=== PATIENT | female | born 1980 | race Caucasian/White ===

== ENCOUNTER 2021-12-15 18:04 | Inpatient (IN) | payer OTHER, SELFPAY ==
[2021-12-15] VITALS (36 sets, daily range): BP systolic 48–123; BP diastolic 18–87; PULSE 106–145; RESP 9–32; TEMP 37.3–37.9; O2SAT 87–98
--- NOTE | ~2021-12-15 | CT_ITS ---
EXAMINATION: CT abdomen pelvis wo con DATE: 12/15/2021 20:52 INDICATION: Flank pain, fever TECHNIQUE: Computed tomography (CT) of the abdomen and pelvis was performed without intravenous contr ast. Automated exposure control and iterative reconstruction technique were employed. Exam dose: 180 6.29 mGy-cm total exam DLP. COMPARISON: 12/15/2021 portable AP chest FINDINGS: There are patchy bilateral focal consolidating infiltrates and/or pulmonary mass lesions. P ulmonary metastatic lesions are not excluded. Right atrial central lines. There is trace pericardial effusion. Heart size is within normal range. Gastrostomy tube in stomach, distal tip in duodenum. Status post cholecystectomy. The liver, spleen, pancreas, adrenal glands are unremarkable. The gallbl adder is absent. No bile duct or pancreatic duct dilatation. Normal caliber of the abdominal aorta. There is severe calcification of the celiac, hepatic, splenic, superior mesenteric and particularly extensive calcifications of the renal arteries extending into t he kidneys. There is prominent calcification of the inferior mesenteric artery. No renal mass lesion or ureteral calculus or hydroureteronephrosis is evident. There is a Ballesteros warren ter within the evacuated urinary bladder. Retroverted uterus. Adnexal areas are unremarkable. The appendix is not identified. No bowel obstruction, bowel wall thickening, pneumatosis or intraperi toneal free air is evident. There is diffuse osteopenia. There is mild compression fracture deformities of T12, L1, L2 and L3. IMPRESSION: Patchy bilateral lower lung focal consolidating infiltrates and/or pulmonary mass lesion s. Pulmonary metastatic lesions are not excluded. Trace pericardial effusion a gastrostomy tube, distal tip in duodenum Status post cholecystectomy and probable appendectomy Severe calcification of celiac, hepatic, splenic, superior mesenteric, inferior mesenteric arteries a nd typically severe calcification throughout the renal arteries Retroverted uterus Mild compression fracture deformities of T12-L3 Reviewed, dictated and finalized at [facility]. Reviewed, dictated and finalized at location [facility]. ING ENFORCEMENT SPECIALIST IMPRESSION: Patchy bilateral lower lung focal consolidating infiltrates and/or pulmonary mass lesions. Pulmonary metastatic lesions are not excluded. Trace pericardial effusion a gastrostomy tube, distal tip in duodenum Status post cholecystectomy and probable appendectomy Severe calcification of celiac, hepatic, splenic, superior mesenteric, inferior mesenteric arteries and typically severe calcification throughout the renal ar teries Retroverted uterus Mild compression fracture deformities of T12-L3
--- NOTE | ~2021-12-15 | CT_ITS ---
EXAMINATION:CT chest high resolution wo ok DATE: 12/16/2021 04:06 INDICATION: Pneumonia. TECHNIQUE: Computed tomography (CT) of the chest was performed without intravenous contrast. Automate d exposure control and iterative reconstruction technique were employed. The dose-length product (DLP ) was 903.46 mGy-cm. COMPARISON: CT abdomen and pelvis 12/15/2021 FINDINGS: The lung volumes are small. There is mild relative elevation of right hemidiaphragm. There are patchy airspace opacities and scattered nodules involving all lobes. Some of the nodules are cavi tary suggesting septic emboli. There are trace pleural effusions. The heart size is normal. No perica rdial effusion. A right internal jugular central venous catheter is seen with tip in the right atrium . A second right internal jugular central venous catheter is seen with tip in the right atrium. There is a gastrojejunostomy tube in expected position. There is peripheral low attenuation in the spleen, likely a subacute or chronic hematoma or subacute infarct. There is mild chronic height loss of mult iple lumbar vertebral bodies. IMPRESSION: 1. Diffuse lung disease, likely pneumonia and septic emboli. 2. Peripheral low attenuation in the spleen, likely a subacute or chronic hematoma or subacute infarc t. Reviewed, dictated and finalized at location [facility]. POINTER IMPRESSION: 1. Diffuse lung disease, likely pneumonia and septic emboli. 2. Peripheral low attenuation in the spleen, likely a subacute or chronic hemat eugene or subacute infarct.
--- NOTE | ~2021-12-15 | XR_ITS ---
XR chest 1V portable DATE: 12/15/2021 19:04 INDICATION: Cough, fever, midsternal chest pain for 2 days. TECHNIQUE: Portable supine AP chest on 12/15/2021 at 1857 hours COMPARISON: None FINDINGS: There is pulmonary vascular prominence and patchy bilateral pulmonary infiltrates scattered throughout both lungs. No pleural effusion. No pneumothorax. Moderate elevation of right diaphragm. Right-sided Port-A-Cath tip overlies upper right atrium. Right internal jugular central venous cathet er tip overlies right atrium. Diffuse osteopenia. IMPRESSION: Pulmonary vascular prominence Patchy bilateral pulmonary infiltrates scattered throughout both lungs; differential diagnosis includ es pulmonary edema and/or pneumonia Reviewed, dictated and finalized at location A. ACT CENTER ASSOCIATE IMPRESSION: Pulmonary vascular prominence Patchy bilateral pulmonary infiltrates scattered throughout both lungs; differe ntial diagnosis includes pulmonary edema and/or pneumonia
--- NOTE | ~2021-12-15 | XR_ITS ---
EXAMINATION: XR chest 1V portable DATE: 12/22/2021 08:31 INDICATION: Chest pain. TECHNIQUE: A single frontal view of the chest was obtained. COMPARISON: Chest single view 12/15/2021, chest CT 12/16/2021 FINDINGS: Again seen is mild elevation of right hemidiaphragm. There are nodules and patchy airspace opacities throughout the lungs bilaterally. No pleural effusion or pneumothorax. The heart size is no rmal. IMPRESSION: 1. Worsened diffuse lung disease, consistent with pneumonia and septic emboli. Reviewed, dictated and finalized at location [facility]. AGE DIVER
[2021-12-15 18:48] LABS: Hematocrit 33.4 % (37.0-47.0); Hemoglobin 10.8 g/dL (12.0-15.0); Mean Corpuscular HGB Conc 32.3 g/dl (32-36); Mean Corpuscular Hemoglobin 32.6 pg (26-34); Mean Corpuscular Volume 100.9 fl (80-100); Platelet Count Result 155 k/mm3 (150-375); Red Blood Count 3.31 M/mm3 (4.2-5.4); Red Cell Distribution Width 15.3 % (11.5-14.5); White Blood Count 35.5 K/mm3 (4.5-10.0)
[2021-12-15 19:00] LABS: INR 1.1; Prothrombin Time 13.9 Seconds (11.1-14.7)
[2021-12-15 19:01] LABS: Partial Thromboplastin Time 38.4 SECONDS (22.3-36.8)
[2021-12-15] MEDS: SODIUM CHLORIDE 0.9% IV 1,000 ML 999 ML IV CONT (19:05)
[2021-12-15 19:09] LABS: Lactic Acid Reflex 1.7 mmol/L (0.7-2.1)
[2021-12-15 19:27] LABS: Band Neutrophils Percent 15 % (0-6); Lymphocytes Absolute Manual 0.71 K/mm3 (1.1-4.5); Monocytes Absolute Manual 0.35 K/mm3 (0.1-0.90); Monocytes Percent Manual 1 % (3-9); Neutrophils Absolute Manual 34.43 K/mm3 (1.7-7.2); Neutrophils Percent Manual 82 % (46-73); Total Cells Counted 100
[2021-12-15 19:28] LABS: Anisocytosis 2+ (NORMAL); Platelet Estimate Adequate (Adequate)
[2021-12-15 19:32] LABS: Alanine Aminotransferase 14 U/L (4-35); Albumin Level 3.8 g/dL (3.5-5.1); Alkaline Phosphatase 74 U/L (38-126); Anion Gap 18 mmol/L (8-16); Aspartate Amino Transferase 17 U/L (14-36); Bilirubin,Total 0.6 mg/dL (0.2-1.3); Blood Urea Nitrogen 46 mg/dL (7-17); CRP > 45.0 mg/dL (<1.0); Calcium 9.7 mg/dL (8.4-10.2); Carbon Dioxide 29 mmol/L (22-30); Chloride 89 mmol/L (98-107); Estimated CRCL calculation 12 ml/min; Estimated Glomerular Filt Rate 6; Glucose 215 mg/dL (65-110); Sodium 136 mmol/L (137-145)
--- NOTE | 2021-12-15 19:35 | ECG_ITS ---
Measurements Intervals [place] Rate: 109 P: 30 TX: 143 QRS: 22 QRSD: 89 T: 74 QT: 312 QTc: 421 Interpretive Statements SINUS TACHYCARDIA POSSIBLE LEFT ATRIAL ENLARGEMENT DELAYED PRECORDIAL R/S TRANSITION LOW QRS VOLTAGE IN LIMB LEADS BORDERLINE T WAVE ABNORMALITY- HIGH LATERAL LEADS BASELINE ARTIFACT- I, II, AVR, V5-V6 ABNORMAL ECG Electronically Signed On 12-15-2021 20:27:28 [employer]IN[employer] by Tyree Little D.O.
[2021-12-15] MEDS: CALCIUM GLUCONATE 1,000 MG/10 ML VIAL 1000 MG IV PUSH (19:56)
[2021-12-15] MEDS: fentaNYL CITRATE INJ (*CRX) 100 MCG/2 ML VIAL 50 MCG IV PUSH (20:13)
--- NOTE | 2021-12-15 20:15 | PC.NURSE ---
no urine output in allred catheter at this time
[2021-12-15] MEDS: ONDANSETRON INJ 4 MG/2 ML VIAL IV PUSH (20:36)
--- NOTE | 2021-12-15 20:37 | PC.NURSE ---
Not enough urine in allred for sample collection.
--- NOTE | 2021-12-15 20:37 | PC.NURSE ---
Pt to cat scan via stretcher at this time.
[2021-12-15 21:11] LABS: SARS-CoV-2 RNA PCR Negative
--- NOTE | 2021-12-15 22:24 | PC.NURSE ---
Spoke to Justo at [facility] and gave nurse to nurse report regarding pt status and POC.
[2021-12-15 22:34] LABS: Add Urine Microscopic? YES; Appearance Urine Cloudy (Clear); Bacteria Urine Trace /hpf; Bilirubin Urine Negative (Negative); Blood Urine Negative (Negative); Color Urine Yellow (Yellow); Glucose Urine UA Negative (Negative); Ketones Urine Negative (Negative); Leukocyte Esterase Ur 2+ LEU/UL (Negative); Mucus Urine Rare /lpf; Nitrate Urine Negative (Negative); Protein Urine 3+ mg/dL (Negative); Specific Grav Ur 1.015 (1.001-1.035); Squamous Epithelial Cell Urine Many /hpf (Few); Urobilinogen Urine Negative mg/dL (<2.0); WBC Clumps Urine Present /HPF; WBC Urine >75 /hpf
[2021-12-15] MEDS: DEXTROSE 50% 25 GM/50 ML SYRINGE IV PUSH (22:50)
[2021-12-15] MEDS: INSULIN HUMAN REGULAR (*BKC) 100 UNITS/ML 10 UNITS IV PUSH (22:51)
[2021-12-15] MEDS: SODIUM CHLORIDE 0.9% IV 1,000 ML 999 ML (22:51)
[2021-12-15] MEDS: SODIUM POLYSTYRENE SULFONONATE 15 GM/60 ML BTL PO (22:51)
--- NOTE | 2021-12-15 23:11 | ED.FEVER ---
HPI - Fever General Chief Complaint: Fever Stated Complaint: CP/COUGH/FEVER Time Seen by Provider: 12/15/21 18:50 Source: patient Mode of arrival: EMS Limitations: no limitations History of Present Illness HPI Narrative: 41-year-old with a history of diabetes, end-stage renal disease on hemodialysis was sent from [facility] with complaints of fever, cough and was also found to have low O2 saturations of 86%. Patient states that she has dry nonproductive cough on and off for 2 days. As per the EMS patient well this evening was given Tylenol prior to coming to the ER. Patient states that she has been sick for past 2 days was unable to go to dialysis because of her intense nausea and vomiting. She denies any abdominal pain no diarrhea. She states that she gets pain in the right side of her chest whenever she coughs or takes a deep breath. Her behavioral health care coordinator is Dr. Guzman. MD elicited complaint: fever Pertinent past history: diabetes Onset (ago): day(s) (2) Exacerbating factors: nothing Relieving factors: nothing Associated symptoms: nausea and vomiting Treatments prior to arrival fever: acetaminophen Related Data Home Medications Medication Instructions Recorded Confirmed ascorbic acid (vitamin C) 250 mg PO WEEKLY 12/15/21 12/15/21 ergocalciferol (vitamin D2) 1,250 mcg PO WEEKLY 12/15/21 12/15/21 fentanyl 1 patch TRANSDERMAL Q72H 12/15/21 12/15/21 heparin (porcine) unit Q8-12H 12/15/21 hydrocodone-acetaminophen [[place]] 1 tablet PO HS 12/15/21 12/15/21 hydroxyzine HCl 10 mg PO QID PRN 12/15/21 12/15/21 insulin lispro [Humalog KwikPen 1 sliding scale dose SUBCUT 12/15/21 12/15/21 Insulin] USEASDIRECTD levothyroxine 25 mcg PO DAILY 12/15/21 12/15/21 loperamide 2 mg PO PRN PRN 12/15/21 12/15/21 metoclopramide HCl 5 mg PO Q6H 12/15/21 12/15/21 sevelamer carbonate 2.4 g PO TID 12/15/21 12/15/21 Allergies Allergy/AdvReac Type Severity Reaction Status Date / Time vancomycin Allergy Rash Verified 12/15/21 18:27 Review of Systems Review of Systems: All systems reviewed & are unremarkable except as noted in HPI and below Constitutional: Constitutional: Reports no additional constitutional complaints Eyes: Eyes: Reports no additional eye complaints ENT: Reports system reviewed and no additional complaints, except as documented Cardiovascular: Cardiovascular: Reports chest pain (on the right side) Respiratory: Respiratory: Reports no additional respiratory complaints Gastrointestinal: Gastrointestinal: Reports nausea and Reports vomiting Musculoskeletal: Musculoskeletal: Reports no additional musculoskeletal complaints Neurologic: Reports system reviewed and no additional complaints, except as documented Endocrine: Endocrine: Reports no additional endocrine complaints Exam Narrative: GENERAL: Well-appearing, Obsese , and in no acute distress. HEAD: Normocephalic, atraumatic. EYES: blind ENT: Nares clear, no rhinorrhea or epistaxis. Mucous membranes moist. NECK: Supple. CHEST: Clear to auscultation. No respiratory distress. has dialysis catheter in the right side of her chest along with the central line. HEART: tachycardic. ABDOMEN: Soft, nontender, nondistended, normal active bowel sounds. EXTREMITIES:right leg has atrophy , left is BKA SKIN: Warm, dry, no rash. NEURO: No focal deficits. Alert and oriented x3. PSYCH: Normal mood and affect. Course Course Emergency Course: Patient continues to have intermittent chest pain more on the right side. But she is not tachypneic or short of breath. I did inform her about her lab work, CT and x-ray findings. I discussed in length with Dr. Grullon , agreed with the plan of dextrose, insulin, calcium and Kayexalate. Agreed with Zosyn. I discussed with Dr. Ashby agreed to admit the patient. However her blood pressure is very variable presently it is 130/107 at drops down to 86/64 she has a pretty labile blood pressure not quite sure whether she needs pressors at t
[2021-12-16] VITALS (46 sets, daily range): BP systolic 69–173; BP diastolic 25–98; PULSE 56–145; RESP 18–37; TEMP 36.8–39.4; O2SAT 92–100; BMI 41.3
[2021-12-16] MEDS: ONDANSETRON INJ 4 MG/2 ML VIAL IV PUSH (00:45)
--- NOTE | 2021-12-16 00:57 | PC.NURSE ---
BS 167
[2021-12-16 01:00] LABS: Glucose Point of Care 167 mg/dl (65-105)
--- NOTE | 2021-12-16 02:20 | PC.NURSE ---
Paging hospitalist due to oral temp of 103, pt has PRN Tylenol PO ordered and pt is unable to swallow pills.
--- NOTE | 2021-12-16 02:49 | PM.IMHP ---
H&P: HPI History of Present Illness Date/Time: 12/16/21 02:49 Chief Complaint: fever Narrative: 41-year-old female with PMH of Diabetes, ESRD on HD sent form [facility] presents with not feeling well, fever, shortness of breath, cough since past few days. she is noted have low oxygen saturation at 86% vomiting. She has been to [facility] and [facility] on and off last year since April 2021. she is ESRD on HD MWF. she missed her HD yesterday as she was not feeling well. shehas right upper chest central line and right chest wall diaalysis cathter in place. she is s/p left AKA and has dx of calciphylaixs. hx of MRSA infection. she has recurrent episodes of vomiting which she rpeorts is diagnosed to be due to gastroparesis. she has G tube placed for her meds as she is not able to take anything by mouth. she also had hx of abdoinal wall wound needing debridement in the past and still has abdominal open wound that she gets dressing changes regularly. she has also been to [facility] in the past off and on from the hospital. she is allergic to vancomycin causing rash. she has been treated with daptomycin in the apst. In the ED she is noted to have bordeline bp, high K and was given treatment for hyperkalemia. she was also taachycaradia ekg showing sinus tachycardia. she is noted to have leukocytoisi f o35 k. she is admtited for further evaluation and management. allred placed in the ED her regular gear tester is Dr. Guzman. she is scheduled to have dialysis this am after consultation with Dr. Grullon from the ED. Review of Systems Review of Systems: - CONSTITUTIONAL: Denies weight loss, reports fever and chills. - HEENT: Denies changes in vision and hearing - RESPIRATORY: reports SOB and cough. - CV: Denies palpitations and CP. - GI: Denies abdominal pain, nausea, vomiting and diarrhea. - : Denies dysuria and urinary frequency. - MSK: Denies myalgia and joint pain. - SKIN: Denies rash and pruritus. - NEUROLOGICAL: Denies headache and syncope. - PSYCHIATRIC: Denies recent changes in mood. Denies anxiety and depression. All systems reviewed & are unremarkable except as noted in HPI and below Constitutional: Constitutional: Reports fatigue and Reports weakness Neurologic: Reports weakness Endocrine: Endocrine: Reports fatigue Meds Home Medications and Allergies Home Medications Medication Instructions Recorded Confirmed Type ascorbic acid (vitamin C) 250 mg PO WEEKLY 12/15/21 12/15/21 History ergocalciferol (vitamin D2) 1,250 mcg PO WEEKLY 12/15/21 12/15/21 History fentanyl 1 patch TRANSDERMAL Q72H 12/15/21 12/15/21 History heparin (porcine) unit Q8-12H 12/15/21 History hydrocodone-acetaminophen [[place]] 1 tablet PO HS 12/15/21 12/15/21 History hydroxyzine HCl 10 mg PO QID PRN 12/15/21 12/15/21 History insulin lispro [Humalog KwikPen 1 sliding scale dose SUBCUT 12/15/21 12/15/21 History Insulin] USEASDIRECTD levothyroxine 25 mcg PO DAILY 12/15/21 12/15/21 History loperamide 2 mg PO PRN PRN 12/15/21 12/15/21 History metoclopramide HCl 5 mg PO Q6H 12/15/21 12/15/21 History sevelamer carbonate 2.4 g PO TID 12/15/21 12/15/21 History Allergies Allergy/AdvReac Type Severity Reaction Status Date / Time vancomycin Allergy Rash Verified 12/15/21 18:27 Vital Signs Vital Signs - 24 hr 12/15/21 18:08 12/15/21 18:38 12/15/21 18:42 Temperature 100.2 F H Pulse Rate 123 H 132 H 132 H Respiratory Rate 24 H 24 H Blood Pressure 94/29 L Pulse Oximetry 87 L 94 94 12/15/21 18:51 12/15/21 18:58 12/15/21 19:13 Temperature 99.8 F H Pulse Rate 120 H 117 H 111 H Respiratory Rate 19 27 H 25 H Blood Pressure 70/18 L 96/60 L Pulse Oximetry 94 12/15/21 19:44 12/15/21 19:45 12/15/21 19:46 Temperature Pulse Rate 109 H 108 H 109 H Respiratory Rate 18 18 19 Blood Pressure 107/41 L Pulse Oximetry 98 97 97 12/15/21 20:00 12/15/21 20:01 12/15/21 20:14 Temperature Pulse Rate 109 H 109 H 106 H
--- NOTE | 2021-12-16 04:02 | PC.NURSE ---
Pt to CT scan at this time.
--- NOTE | 2021-12-16 04:08 | PC.NURSE ---
Hospitalist made aware of pharmacy requests for medication verification and missing information. Per Pharmacist - hospitalist needs to add in/edit information missing in. Hospitalist made aware, asks if medications were entered. Medication list was entered by Christina LESTER prior to this RN taking report. Copy sent to pharmacy - states will call if need a critical medication, otherwise will wait for hospitalist to enter.
--- NOTE | 2021-12-16 04:21 | PC.NURSE ---
This RN attempted to call [facility] for clarification on medication list - such as when Fentanyl Patch was last placed (ordered q 3 days), no answer at this time.
--- NOTE | 2021-12-16 04:21 | PC.NURSE ---
Called pt's sister Heather at [phone] and gave update on pt status and POC. She is normally computer operations manager for pt and requesting updates to be called to her at this number. Pt currently at [facility] for wound care to stomach.
--- NOTE | 2021-12-16 05:00 | PC.NURSE ---
Pt has Fentanyl Patch to LEFT shoulder, unable to see date clearly (ink rubbed off), unknown date of placement. Called James for clarification, no response at this time. Hospitalist Dr Escamilla made aware, discussed vitals - temp of 102.
[2021-12-16 06:15] LABS: Hematocrit 31.4 % (37.0-47.0); Hemoglobin 9.8 g/dL (12.0-15.0); Mean Corpuscular HGB Conc 31.2 g/dl (32-36); Mean Corpuscular Hemoglobin 31.9 pg (26-34); Mean Corpuscular Volume 102.3 fl (80-100); Mean Platelet Volume 10.3 fl (7.4-10.4); Platelet Count Result 133 k/mm3 (150-375); Red Blood Count 3.07 M/mm3 (4.2-5.4); Red Cell Distribution Width 15.4 % (11.5-14.5)
[2021-12-16] MEDS: METOCLOPRAMIDE HCL 10 MG/10 ML SOLN UDC 5 MG PO ×2 (06:22→17:55)
[2021-12-16] MEDS: hydrOXYzine HCL 10 MG TABLET PO (06:22)
[2021-12-16] MEDS: DAPTOmycin 500 MG in SODIUM CHLORIDE 0.9% IV 50 ML 100 MG IVPB (06:23)
[2021-12-16] MEDS: LEVOTHYROXINE SODIUM 25 MCG TABLET PO (06:30)
[2021-12-16 06:43] LABS: Anion Gap 19 mmol/L (8-16); Blood Urea Nitrogen 49 mg/dL (7-17); Calcium 9.3 mg/dL (8.4-10.2); Carbon Dioxide 23 mmol/L (22-30); Chloride 92 mmol/L (98-107); Estimated CRCL calculation 11 ml/min; Estimated Glomerular Filt Rate 6; Glucose 177 mg/dL (65-110); Potassium 6.1 mmol/L (3.4-5.0); Sodium 134 mmol/L (137-145)
[2021-12-16 06:46] LABS: Band Neutrophils Percent 6 % (0-6); Lymphocytes Absolute Manual 0.66 K/mm3 (1.1-4.5); Metamyelocytes Percent 2 %; Monocytes Absolute Manual 0.99 K/mm3 (0.1-0.90); Monocytes Percent Manual 3 % (3-9); Neutrophils Absolute Manual 30.69 K/mm3 (1.7-7.2); Neutrophils Percent Manual 87 % (46-73); Total Cells Counted 100
[2021-12-16] MEDS: PHARMACIST COMMUNICATION ORDER 1 EACH XX (07:03)
[2021-12-16 08:08] LABS: Glucose Point of Care 183 mg/dl (65-105)
[2021-12-16] MEDS: fentaNYL (*CRX) 25 MCG PATCH TRANSDERM (08:16)
[2021-12-16] MEDS: CALCIUM GLUCONATE 1,000 MG/10 ML VIAL 1000 MG IV PUSH (09:00)
[2021-12-16] MEDS: SODIUM POLYSTYRENE SULFONONATE 15 GM/60 ML BTL 30 GM FEED TUBE (09:02)
[2021-12-16 09:38] LABS: Hemoglobin A1C 5.2 % (<5.7)
[2021-12-16] MEDS: COLLAGENASE OINT 30 GM TUBE 1 APPLIC TOPICAL (11:00)
[2021-12-16] MEDS: TOLNAFTATE 1% POWDER 45 GM BTL 1 APPLIC TOPICAL (11:00)
--- NOTE | 2021-12-16 12:00 | PC.NURSE ---
pt to dialysis. stable to leave.
[2021-12-16 14:21] LABS: Hepatitis B Surface Antigen Negative (Negative)
[2021-12-16 14:39] LABS: Hepatitis B Surface Anti Res Negative
--- NOTE | 2021-12-16 14:51 | PC.NURSE ---
Report received from TAYLER Perea @ 1330. Pt currently in dialysis and will be admitted to IMu Rm 202 after treatment is completed
--- NOTE | 2021-12-16 14:53 | ADMGEN ---
This patient, Gayle Dixon, was admitted to IMU Room 202-01. Patient/family oriented to hospital policies and general routines including ID bracelet, bed and alarms, visiting hours, pain management, procedures, bathroom and other care routines, personal items, smoking policy, room service/diet, and visiting hours. Information on how to activate the Rapid Response Team has been discussed. Patient/Family are encouraged to report perceived risks to care and to ask questions if they do not understand what they are told or what they should do.
--- NOTE | 2021-12-16 15:06 | P.CONNP_ITS ---
Assessment and Plan Assessment and plan (1) End stage renal disease: Code(s): N18.6 - End stage renal disease Status: Chronic Assessment and Plan: * initiated on APPOINTMENT SETTER/dialysis in January 2021 * thought to be secondary to diabetes * normal schedule is M// at [facility] * HD today due to #2 * hhhhhhhhhhg (2) Hyperkalemia: Code(s): E87.5 - Hyperkalemia Status: Acute Assessment and Plan: * as noted by admission labs * s/p medical management yesterday evening * however, K+ still elevated this AM * dialysis should correct this issue * follow repeat K+ levels (3) Sepsis: Qualifiers: Sepsis acute organ dysfunction status: without acute organ dysfunction Sepsis type: sepsis due to unspecified organism Qualified Code(s): A41.9 - Sepsis, unspecified organism Code(s): A41.9 - Sepsis, unspecified organism Status: Acute Assessment and Plan: * based on presentation with tachycardia, fever, leukocytosis and hypotension (although has a history of low BP) * potential sources include HD catheter AND central line, pneumonia, calciphylaxis lesions/wounds * follow culture data * on broad spectrum antibiotic therapy (4) Pneumonia: Qualifiers: Laterality: bilateral Lung location: unspecified part of lung Pneumonia type: due to unspecified organism Qualified Code(s): J18.9 - Pneumonia, unspecified organism Code(s): J18.9 - Pneumonia, unspecified organism Status: Acute Assessment and Plan: * CXR suggestive * CT of chest with patchy airspace opacities and scattered nodules involving all lobes. Some of the nodules are cavitary suggesting septic emboli. * follow cultures * on antibiotics (5) Calciphylaxis: Code(s): E83.59 - Other disorders of calcium metabolism Status: Acute Assessment and Plan: * mainly localized to abdomen/abdominal pannus * was getting sodium thiosulfate * developed severe anion gap metabolic acidosis from use * this apparently resolved * local wound care * potential source of sepsis(?) (6) Hypotension: Code(s): I95.9 - Hypotension, unspecified Status: Chronic Assessment and Plan: * chronic issue at baseline * surprisingly, not on midodrine * secondary to advanced vascular disease(?) * follow trend of hemodynamics (7) Anemia: Code(s): D64.9 - Anemia, unspecified Status: Chronic Assessment and Plan: * related to ESRD and acute illness * Epogen with HD * follow H/H (8) Type 2 diabetes mellitus: Code(s): E11.9 - Type 2 diabetes mellitus without complications Status: Chronic Assessment and Plan: * follow accuchecks * glycemic control Will continue to follow. History of Present Illness Reason for Consult Consult date: 12/16/21 Chief Complaint Chief complaint: sepsis, pneumonia, hyperkalemia History of Present Illness Narrative: The patient is a unfortunate 41-year-old female with an extensive past medical history is outlined below who presented to [facility] Emergency room from her nursing facility due to not feeling well in association with fever, shortness of breath, and cough. The above symptoms apparently have been present for the past few days and was noted on the day of admission that she had evidence of hypoxia as well. Due to her complex medical history and recurrent hospitalizations in the last year for sepsis/infection, her nursing facility since her to t
--- NOTE | 2021-12-16 15:06 | PM.CNNEP ---
Assessment and Plan Assessment and plan (1) End stage renal disease: Code(s): N18.6 - End stage renal disease Status: Chronic Assessment and Plan: initiated on MANAGER CHINESE/dialysis in January 2021 thought to be secondary to diabetes normal schedule is M//F at [facility] HD today due to #2 hhhhhhhhhhg (2) Hyperkalemia: Code(s): E87.5 - Hyperkalemia Status: Acute Assessment and Plan: as noted by admission labs s/p medical management yesterday evening however, K+ still elevated this AM dialysis should correct this issue follow repeat K+ levels (3) Sepsis: Qualifiers: Sepsis acute organ dysfunction status: without acute organ dysfunction Sepsis type: sepsis due to unspecified organism Qualified Code(s): A41.9 - Sepsis, unspecified organism Code(s): A41.9 - Sepsis, unspecified organism Status: Acute Assessment and Plan: based on presentation with tachycardia, fever, leukocytosis and hypotension (although has a history of low BP) potential sources include HD catheter AND central line, pneumonia, calciphylaxis lesions/wounds follow culture data on broad spectrum antibiotic therapy (4) Pneumonia: Qualifiers: Laterality: bilateral Lung location: unspecified part of lung Pneumonia type: due to unspecified organism Qualified Code(s): J18.9 - Pneumonia, unspecified organism Code(s): J18.9 - Pneumonia, unspecified organism Status: Acute Assessment and Plan: CXR suggestive CT of chest with patchy airspace opacities and scattered nodules involving all lobes. Some of the nodules are cavitary suggesting septic emboli. follow cultures on antibiotics (5) Calciphylaxis: Code(s): E83.59 - Other disorders of calcium metabolism Status: Acute Assessment and Plan: mainly localized to abdomen/abdominal pannus was getting sodium thiosulfate developed severe anion gap metabolic acidosis from use this apparently resolved local wound care potential source of sepsis(?) (6) Hypotension: Code(s): I95.9 - Hypotension, unspecified Status: Chronic Assessment and Plan: chronic issue at baseline surprisingly, not on midodrine secondary to advanced vascular disease(?) follow trend of hemodynamics (7) Anemia: Code(s): D64.9 - Anemia, unspecified Status: Chronic Assessment and Plan: related to ESRD and acute illness Epogen with HD follow H/H (8) Type 2 diabetes mellitus: Code(s): E11.9 - Type 2 diabetes mellitus without complications Status: Chronic Assessment and Plan: follow accuchecks glycemic control Will continue to follow. History of Present Illness Reason for Consult Consult date: 12/16/21 Chief Complaint Chief complaint: sepsis, pneumonia, hyperkalemia History of Present Illness Narrative: The patient is a unfortunate 41-year-old female with an extensive past medical history is outlined below who presented to [facility] Emergency room from her nursing facility due to not feeling well in association with fever, shortness of breath, and cough. The above symptoms apparently have been present for the past few days and was noted on the day of admission that she had evidence of hypoxia as well. Due to her complex medical history and recurrent hospitalizations in the last year for sepsis/infection, her nursing facility since her to the emergency room for further evaluation. Workup and evaluation emergency room demonstrated the patient to be somewhat hypotensive but did respond to IV fluid boluses. Routine blood test demonstrated labs consistent with her known history of end-stage renal disease but she had evidence of hyperkalemia with a potassium of 6.1. Furthermore, once again, there was concern for sepsis as she had tachycardia, leukocytosis, and was febrile and a chest x-ray that was somewhat concern
[2021-12-16 17:29] LABS: Glucose Point of Care 114 mg/dl (65-105)
[2021-12-16] MEDS: SODIUM CHLORIDE 0.9% IV 1,000 ML 75 ML IV CONT ×2 (17:30)
[2021-12-16] MEDS: SEVELAMER CARBONATE 800 MG TABLET 2400 MG PO (17:55)
[2021-12-16] MEDS: ACETAMINOPHEN 325 MG TABLET 650 MG PO (17:58)
--- NOTE | 2021-12-16 18:05 | PM.IMPN ---
Progress Note: A&P Assessment and Plan (1) Sepsis: Qualifiers: Sepsis acute organ dysfunction status: without acute organ dysfunction Sepsis type: sepsis due to unspecified organism Qualified Code(s): A41.9 - Sepsis, unspecified organism Code(s): A41.9 - Sepsis, unspecified organism Status: Acute (2) Acute hyperkalemia: Code(s): E87.5 - Hyperkalemia Status: Acute (3) ESRD on hemodialysis: Code(s): N18.6 - End stage renal disease; Z99.2 - Dependence on renal dialysis Status: Acute (4) Pneumonia: Qualifiers: Laterality: bilateral Lung location: unspecified part of lung Pneumonia type: due to unspecified organism Qualified Code(s): J18.9 - Pneumonia, unspecified organism Code(s): J18.9 - Pneumonia, unspecified organism Status: Acute (5) S/P AKA (above knee amputation) unilateral: Code(s): Z89.619 - Acquired absence of unspecified leg above knee Status: Acute (6) Anemia: Code(s): D64.9 - Anemia, unspecified Status: Chronic (7) Hypothyroidism: Code(s): E03.9 - Hypothyroidism, unspecified Status: Acute (8) Type 2 diabetes mellitus: Code(s): E11.9 - Type 2 diabetes mellitus without complications Status: Chronic (9) Morbid obesity: Code(s): E66.01 - Morbid (severe) obesity due to excess calories Status: Acute (10) Calciphylaxis: Code(s): E83.59 - Other disorders of calcium metabolism Status: Acute (11) Gastroparesis: Code(s): K31.84 - Gastroparesis Status: Acute (12) S/P percutaneous endoscopic gastrostomy (PEG) tube placement: Code(s): Z93.1 - Gastrostomy status Status: Acute Additional Plan Patient has been admitted to IMU. COVID swab was negative. Chest x-ray consistent with pneumonia. CT high-resolution of the chest shows diffuse lung disease likely pneumonia and septic emboli. Splenic subacute or chronic hematoma or infarct noted. CT of the abdomen pelvis does not show any acute findings but does show severe calcifications of majority of the abdominal arteries. She meets criteria for sepsis and now has septicemia with positive blood cultures. Most likely related to either her hemodialysis catheter and/or the central line. Most likely the central line will need to be removed. Hopefully will be able to treat through to preserve the dialysis catheter. Will check echocardiogram. Her hyperkalemia is related to her missing her dialysis. She will go undergo dialysis today. Appreciate Nephrology input. Will check echocardiogram but may need SHIRLEY since high likelihood she has endocarditis. Continue broad-spectrum IV antibiotics. Plan to repeat blood cultures in a day or so. Mild thrombocytopenia noted. Heparin for DVT prophylaxis but will monitor platelet count closely. Suspect low platelet count more likely related to the sepsis. Subjective Date/time seen: 12/16/21 18:05 Interval history: 41-year-old female with PMH of Diabetes, ESRD on HD sent form [facility] presents with not feeling well, fever, shortness of breath, cough since past few days. patient complains of chest and upper back pain. She also has chronic low back pain. She has been having fever and chills. Also with nausea and vomiting. She has a G-tube in place that he has used for medications. She is able to eat orally. She has a tunneled hemodialysis catheter right upper chest and does hemodialysis Monday. Because she was feeling ill, she missed dialysis on 12/15/2021. She has been on hemodialysis since April of last year. She also has a central line in her right upper chest as well that was being used for antibiotics that was placed in the fall. She is not currently on antibiotics now. She was on oral antibiotics last month but that has stopped. She received Her 1st COVID vaccine this month. She denies any anosmia dysgeusia. No odynophagia or dy
[2021-12-16 20:47] LABS: Glucose Point of Care 126 mg/dl (65-105)
[2021-12-16] MEDS: CENTRAL LINE FLUSH 10 ML IV PUSH (21:53)
[2021-12-16] MEDS: HYDROcodone/acetaminophen (*CRX) 7.5-325 MG TABLET 1 TAB PO (21:54)
[2021-12-16] MEDS: HEPARIN SODIUM 5,000 UNITS/ML VIAL 5000 UNITS SUB-Q (21:54)
[2021-12-16] MEDS: ASCORBIC ACID 250 MG TABLET PO (21:54)
[2021-12-17] VITALS (27 sets, daily range): BP systolic 90–162; BP diastolic 26–60; PULSE 78–137; RESP 18–26; TEMP 36.5–39.6; O2SAT 92–96
--- NOTE | 2021-12-17 | ECHO_ITS ---
Patient Info Name: Gayle Dixon Age: 41 years : 1980 Gender: Female Ht: 69 in Wt: 279 lbs BSA: 2.54 m2 HR: 123 bpm BP: 99 / 36 mmHg Heart Rhythm: Tachycardia Technical Quality: Fair Exam Date: 12/17/2021 3:16 PM Exam Location: [facility] Pulmonary Patient Status: Inpatient Admit Date: 12/15/2021 Staff Ordering Physician: Juan Farrell MD Towing Pilot: Ariane Parker RDCS Attending Provider: Case Escamilla MD Exam Type: CA echo dop color flow w con Study Info Indications - bacteremia Complete two-dimensional, color flow and Doppler transthoracic echocardiogram is performed. Summary 1. Complete two-dimensional, color flow and Doppler transthoracic echocardiogram is performed. 2. Left ventricular chamber dimension is normal. 3. Definity contrast administered improved wall motion interpretation. 4. Left ventricular systolic function is normal, estimated at 60-65%. 5. There is mildly increased left ventricular wall thickness. 6. The left ventricular diastolic function is grade I diastolic dysfunction. 7. There is an rounded echogenic mass measuring 0.7 cm x 0.8 cm attached to noncoronary cusp of aortic valve suggestive of vegetation and infective endocarditis. It is only seen in parasternal long axis views. 8. No pulmonary hypertension, estimated pulmonary arterial systolic pressure is 21 mmHg. 9. There is small circumferential pericardial effusion. Left Ventricle Definity contrast administered improved wall motion interpretation. Left ventricular chamber dimension is normal. Left ventricular systolic function is normal, estimated at 60-65%. There is mildly increased left ventricular wall thickness. The left ventricular diastolic function is grade I diastolic dysfunction. Tissue doppler is not performed. Right Ventricle Right ventricular chamber dimension is not well visualized. Left Atria Left atrial chamber dimension is normal. Right Atria Right atrial chamber dimension is not well visualized. Aortic Valve There is an rounded echogenic mass measuring 0.7 cm x 0.8 cm attached to noncoronary cusp of aortic valve suggestive of vegetation and infective endocarditis. It is only seen in parasternal long axis views. The aortic valve is trileaflet. There is no aortic valve stenosis. There is no aortic valve regurgitation. Pulmonic Valve There is no pulmonic regurgitation. Mitral Valve There is no mitral valve stenosis. There is no mitral valve regurgitation. Tricuspid Valve There is no tricuspid valve regurgitation. No pulmonary hypertension, estimated pulmonary arterial systolic pressure is 21 mmHg. Pericardium/Pleural There is small circumferential pericardial effusion. Inferior Vena Cava Normal inferior vena cava with >50% collapse upon inspiration consistent with normal right atrial pressure, 5 mmHg. Aorta The aortic root size at the sinus of Valsalva is normal. Left Ventricular Outflow Tract Name Value Normal LVOT 2D LVOT Diameter 2.02 cm LVOT Doppler LVOT Peak Gradient 9 mmHg LVOT Mean Gradient 4 mmHg L
[2021-12-17] MEDS: TOLNAFTATE 1% POWDER 45 GM BTL 1 APPLIC TOPICAL ×3 (01:44→21:15)
[2021-12-17] MEDS: METOCLOPRAMIDE HCL 10 MG/10 ML SOLN UDC 5 MG PO ×3 (01:44→16:32)
[2021-12-17] MEDS: HEPARIN SODIUM 5,000 UNITS/ML VIAL 5000 UNITS SUB-Q ×3 (06:17→21:17)
[2021-12-17] MEDS: CENTRAL LINE FLUSH 10 ML IV PUSH ×3 (06:17→21:18)
[2021-12-17] MEDS: LEVOTHYROXINE SODIUM 25 MCG TABLET PO (06:18)
[2021-12-17 06:19] LABS: Hemoglobin 8.3 g/dL (12.0-15.0); Mean Corpuscular HGB Conc 30.7 g/dl (32-36); Mean Corpuscular Hemoglobin 32.4 pg (26-34); Mean Corpuscular Volume 105.5 fl (80-100); Platelet Count Result 104 k/mm3 (150-375); Red Blood Count 2.56 M/mm3 (4.2-5.4); Red Cell Distribution Width 15.9 % (11.5-14.5); White Blood Count 18.8 K/mm3 (4.5-10.0)
[2021-12-17 06:36] LABS: Alanine Aminotransferase 12 U/L (4-35); Albumin Level 2.8 g/dL (3.5-5.1); Alkaline Phosphatase 66 U/L (38-126); Anion Gap 12 mmol/L (8-16); Aspartate Amino Transferase 20 U/L (14-36); Bilirubin,Total 0.4 mg/dL (0.2-1.3); Blood Urea Nitrogen 26 mg/dL (7-17); Calcium 8.1 mg/dL (8.4-10.2); Carbon Dioxide 27 mmol/L (22-30); Chloride 98 mmol/L (98-107); Estimated CRCL calculation 22 ml/min; Estimated Glomerular Filt Rate 11; Glucose 103 mg/dL (65-110); Magnesium 1.6 mg/dL (1.6-2.3); Phosphorus 3.9 mg/dL (2.5-4.5); Potassium 3.3 mmol/L (3.4-5.0); Sodium 137 mmol/L (137-145)
[2021-12-17 06:52] LABS: Band Neutrophils Percent 8 % (0-6); Lymphocytes Absolute Manual 0.56 K/mm3 (1.1-4.5); Monocytes Absolute Manual 0.56 K/mm3 (0.1-0.90); Monocytes Percent Manual 3 % (3-9); Neutrophils Absolute Manual 17.67 K/mm3 (1.7-7.2); Neutrophils Percent Manual 86 % (46-73); Total Cells Counted 100
[2021-12-17 06:53] LABS: Anisocytosis 1+ (NORMAL); Hypochromasia 2+ (NORMAL)
[2021-12-17 07:47] LABS: Toxigenic C. Diff NEGATIVE (NEGATIVE)
[2021-12-17] MEDS: ASCORBIC ACID 250 MG TABLET PO ×2 (08:25→16:32)
[2021-12-17] MEDS: ACETAMINOPHEN 325 MG TABLET 650 MG PO ×2 (08:25→16:40)
[2021-12-17] MEDS: SEVELAMER CARBONATE 800 MG TABLET 2400 MG PO ×2 (08:25→16:32)
[2021-12-17] MEDS: MULTIVITAMINS /C LUTEIN (CENTRUM SILVER) TABLET *BKC 1 TAB PO (08:25)
[2021-12-17] MEDS: COLLAGENASE OINT 30 GM TUBE 1 APPLIC TOPICAL (08:27)
[2021-12-17] MEDS: SODIUM CHLORIDE 0.9% IV 1,000 ML 100 ML IV CONT (08:30)
[2021-12-17 08:42] LABS: Glucose Point of Care 124 mg/dl (65-105)
[2021-12-17 09:07] LABS: Hemoglobin A1C 5.3 % (<5.7)
--- NOTE | 2021-12-17 10:39 | P.PNNP_ITS ---
Progress Note: A&P Assessment and Plan (1) End stage renal disease: Code(s): N18.6 - End stage renal disease Status: Chronic Assessment and Plan: * initiated on SALON DESIGNER/dialysis in January 2021 * thought to be secondary to diabetes * normal schedule is M/W/ at [facility] * Hemodialysis done yesterday and will do another 1 today to get her back on schedule. * Unable to take much fluid off yesterday, probably because of the sepsis. * Her chest x-ray is wet. She is on no oxygen. * Will try to take off some fluid today. Will use albumin and midodrine to help. (2) Hyperkalemia: Code(s): E87.5 - Hyperkalemia Status: Acute Assessment and Plan: * Resolved (3) Sepsis: Qualifiers: Sepsis acute organ dysfunction status: without acute organ dysfunction Sepsis type: sepsis due to unspecified organism Qualified Code(s): A41.9 - Sepsis, unspecified organism Code(s): A41.9 - Sepsis, unspecified organism Status: Acute Assessment and Plan: * She had fever, leukocytosis, hypotension, and tachycardia. * Heart rate still high * Temperature spike to 39.4. And she defervesced and now is 38.1. * . White count much better. * potential sources include HD catheter AND central line, pneumonia, calciphylaxis lesions/wounds * Staph aureus in the blood. * She may need lines changed. At least the central line if not the dialysis catheter. She has calciphylaxis which is possibly the source of the infection. But the for vascular catheters could be causing persistent infection. Will repeat blood cultures today and see if they clear. * Urine culture negative * On piperacillin and daptomycin. (4) Pneumonia: Qualifiers: Laterality: bilateral Lung location: unspecified part of lung Pneumonia type: due to unspecified organism Qualified Code(s): J18.9 - Pneumonia, unspecified organism Code(s): J18.9 - Pneumonia, unspecified organism Status: Acute Assessment and Plan: * CXR suggestive * CT of chest with patchy airspace opacities and scattered nodules involving all lobes. Some of the nodules are cavitary suggesting septic emboli. * follow cultures * on antibiotics (5) Calciphylaxis: Code(s): E83.59 - Other disorders of calcium metabolism Status: Acute Assessment and Plan: * mainly localized to abdomen/abdominal pannus * was getting sodium thiosulfate * developed severe anion gap metabolic acidosis from use * this apparently resolved * local wound care (6) Hypotension: Code(s): I95.9 - Hypotension, unspecified Status: Chronic Assessment and Plan: * chronic issue at baseline * Try midodrine on dialysis today. (7) Anemia: Code(s): D64.9 - Anemia, unspecified Status: Chronic Assessment and Plan: * related to ESRD and acute illness * Epogen with HD * follow H/H (8) Type 2 diabetes mellitus: Code(s): E11.9 - Type 2 diabetes mellitus without complications Status: Chronic Assessment and Plan: * follow accuchecks * glycemic control Will continue to follow. Subjective Date/time seen: 12/17/21 10:39 Interval history: Patient is comfortable. She is lying flat in bed. No shortness of breath. She has some pain along the top of her chest. This is unchanged from before. Review of Systems Cardiovascular: Cardiovascular: Reports no additional cardiovascular complaints Respiratory:
--- NOTE | 2021-12-17 10:39 | PM.PNNEP ---
Progress Note: A&P Assessment and Plan (1) End stage renal disease: Code(s): N18.6 - End stage renal disease Status: Chronic Assessment and Plan: initiated on TOR[employer] PROFESSOR/dialysis in January 2021 thought to be secondary to diabetes normal schedule is M/W/F at [facility] Hemodialysis done yesterday and will do another 1 today to get her back on schedule. Unable to take much fluid off yesterday, probably because of the sepsis. Her chest x-ray is wet. She is on no oxygen. Will try to take off some fluid today. Will use albumin and midodrine to help. (2) Hyperkalemia: Code(s): E87.5 - Hyperkalemia Status: Acute Assessment and Plan: Resolved (3) Sepsis: Qualifiers: Sepsis acute organ dysfunction status: without acute organ dysfunction Sepsis type: sepsis due to unspecified organism Qualified Code(s): A41.9 - Sepsis, unspecified organism Code(s): A41.9 - Sepsis, unspecified organism Status: Acute Assessment and Plan: She had fever, leukocytosis, hypotension, and tachycardia. Heart rate still high Temperature spike to 39.4. And she defervesced and now is 38.1. . White count much better. potential sources include HD catheter AND central line, pneumonia, calciphylaxis lesions/wounds Staph aureus in the blood. She may need lines changed. At least the central line if not the dialysis catheter. She has calciphylaxis which is possibly the source of the infection. But the for vascular catheters could be causing persistent infection. Will repeat blood cultures today and see if they clear. Urine culture negative On piperacillin and daptomycin. (4) Pneumonia: Qualifiers: Laterality: bilateral Lung location: unspecified part of lung Pneumonia type: due to unspecified organism Qualified Code(s): J18.9 - Pneumonia, unspecified organism Code(s): J18.9 - Pneumonia, unspecified organism Status: Acute Assessment and Plan: CXR suggestive CT of chest with patchy airspace opacities and scattered nodules involving all lobes. Some of the nodules are cavitary suggesting septic emboli. follow cultures on antibiotics (5) Calciphylaxis: Code(s): E83.59 - Other disorders of calcium metabolism Status: Acute Assessment and Plan: mainly localized to abdomen/abdominal pannus was getting sodium thiosulfate developed severe anion gap metabolic acidosis from use this apparently resolved local wound care (6) Hypotension: Code(s): I95.9 - Hypotension, unspecified Status: Chronic Assessment and Plan: chronic issue at baseline Try midodrine on dialysis today. (7) Anemia: Code(s): D64.9 - Anemia, unspecified Status: Chronic Assessment and Plan: related to ESRD and acute illness Epogen with HD follow H/H (8) Type 2 diabetes mellitus: Code(s): E11.9 - Type 2 diabetes mellitus without complications Status: Chronic Assessment and Plan: follow accuchecks glycemic control Will continue to follow. Subjective Date/time seen: 12/17/21 10:39 Interval history: Patient is comfortable. She is lying flat in bed. No shortness of breath. She has some pain along the top of her chest. This is unchanged from before. Review of Systems Cardiovascular: Cardiovascular: Reports no additional cardiovascular complaints Respiratory: Respiratory: Reports no additional respiratory complaints Gastrointestinal: Gastrointestinal: Reports no additional gastrointestinal complaints Genitourinary: Genitourinary: Reports no additional female genitourinary complaints Exam Narrative: WDWN in NAD skin no rash head ncat lungs clear cor reg no rub abd BS+ nontender and soft ext 1+ bilateral edema. Objective Data Vital Signs Vital Signs: Vital Signs - 24 hr 12/16/21 11:30 12/16/21 12:05 12/16/21 12:10 Temperature 37.5 C 37.5 C
[2021-12-17] MEDS: ALBUMIN HUMAN 25% 12.5 GM/50ML 50 ML IVPB (10:50)
[2021-12-17] MEDS: EPOETIN ALFA-EPBX 10,000 UNITS/ML VIAL 10000 UNITS IV PUSH (12:44)
--- NOTE | 2021-12-17 13:13 | PM.IMPN ---
Progress Note: A&P Assessment and Plan (1) Sepsis: Qualifiers: Sepsis acute organ dysfunction status: without acute organ dysfunction Sepsis type: sepsis due to unspecified organism Qualified Code(s): A41.9 - Sepsis, unspecified organism Code(s): A41.9 - Sepsis, unspecified organism Status: Acute Assessment and Plan: Patient sent into the ED from the [place] for fever, cough and hypoxia. COVID swab was negative. Chest x-ray consistent with pneumonia. CT high-resolution of the chest shows diffuse lung disease likely pneumonia and septic emboli. Splenic subacute or chronic hematoma or infarct noted. CT of the abdomen pelvis does not show any acute findings but does show severe calcifications of majority of the abdominal arteries. She meets criteria for sepsis with fever, tachycardia, and leukocytosis. And now has septicemia with positive blood cultures growing Staph Aureus (2of2). Suspect endocarditis given the CT chest findings; Echo ordered. UCx negative. WBC was 33K but better today at 18.8K. She is allergic to Vancomycin. Continue Daptomycin and Zosyn for now. Follow up on sensitivities. Repeat BCx ordered. may need to remove line(s) if persistent bacteremia. (2) Acute hyperkalemia: Code(s): E87.5 - Hyperkalemia Status: Acute Assessment and Plan: Potassium 6.0 on admission. This was treated appropriately. On repeat potassium was about the same so treatment was repeated. She was stabilized until such time as she could received dialysis. Potassium today is actually low at 3.3. Will continue to monitor. Appreciate Nephrology input. Continue dialysis to control fluid status and electrolyte changes. (3) Pneumonia: Qualifiers: Laterality: bilateral Lung location: unspecified part of lung Pneumonia type: due to unspecified organism Qualified Code(s): J18.9 - Pneumonia, unspecified organism Code(s): J18.9 - Pneumonia, unspecified organism Status: Acute Assessment and Plan: As above. (4) ESRD on hemodialysis: Code(s): N18.6 - End stage renal disease; Z99.2 - Dependence on renal dialysis Status: Acute Assessment and Plan: Patient has end-stage renal disease. She has hemodialysis Monday-Monday -Monday. Because of her illness, she missed dialysis on 12/15/2021. She did have hyperkalemia on admission. She has undergone hemodialysis since admission with improvement of her potassium level. Her obstetrician is Dr. Guzman. Continue Renvela. Appreciate nephrology input (5) Anemia: Code(s): D64.9 - Anemia, unspecified Status: Chronic Assessment and Plan: Hgb 10.8 on admission.Patient has a history of anemia. Hemoglobin has trended down to 8.3 today. Most likely related to her acute end-stage renal disease. We will check iron studies. Check B12 as well given the elevated MCV. Epo been started. Continue to follow. (6) Thrombocytopenia: Code(s): D69.6 - Thrombocytopenia, unspecified Status: Acute Assessment and Plan: Plt count normal on admission but has dropped to 104K. [place] related to consumption. She came in on heparin and this was continued. Will follow for now but stop if drops below 100K. (7) Type 2 diabetes mellitus: Code(s): E11.9 - Type 2 diabetes mellitus without complications Status: Chronic Assessment and Plan: A1c 5.2. The patient's blood glucose was reviewed on 12/17 Glucose remains well controlled. Continue AccuCheks covering with sliding scale. Hypoglycemia protocol available as needed. Continue to monitor. (8) Calciphylaxis: Code(s): E83.59 - Other disorders of calcium metabolism Status: Acute Assessment and Plan: Patient known to have calciphylaxis. Continue wound care treatment to the mid-abdominal wound. (9) Gastroparesis: Code(s): K31.84 - Gastroparesis Status: Acute Assessment and Plan
[2021-12-17] MEDS: PERFLUTREN LIPID MICROSPHERES 1.5 ML VIAL DILUTED TO 10 ML TOTAL VOLUME IV PUSH (16:00)
--- NOTE | 2021-12-17 16:08 | IVDEFINITY ---
Prior to administration of IV Definity the patient was educated on the risks and benefits of the imaging enhancing agent including potential adverse side effects. The patient verbalized understanding. Allergies were verified. No exclusion criteria were identified and at least one of the following inclusion criteria were met: 1) physician request, 2) patient technically difficult to image (per the [place] [employer] guidelines of two or more segments not discernable within the apical view), or 3) questionable left ventricular function. ?
[2021-12-17 17:15] LABS: Glucose Point of Care 121 mg/dl (65-105)
[2021-12-17 20:53] LABS: Glucose Point of Care 108 mg/dl (65-105)
[2021-12-17] MEDS: HYDROcodone/acetaminophen (*CRX) 7.5-325 MG TABLET 1 TAB PO (21:15)
[2021-12-18] VITALS (18 sets, daily range): BP systolic 106–141; BP diastolic 37–77; PULSE 103–129; RESP 16–32; TEMP 35.9–38.8; O2SAT 90–98
[2021-12-18] MEDS: METOCLOPRAMIDE HCL 10 MG/10 ML SOLN UDC 5 MG PO ×4 (00:42→18:24)
[2021-12-18] MEDS: LEVOTHYROXINE SODIUM 25 MCG TABLET PO (05:51)
[2021-12-18] MEDS: HEPARIN SODIUM 5,000 UNITS/ML VIAL 5000 UNITS SUB-Q ×3 (05:51→21:18)
[2021-12-18] MEDS: DAPTOmycin 500 MG in SODIUM CHLORIDE 0.9% IV 50 ML 100 MG IVPB (05:51)
[2021-12-18] MEDS: CENTRAL LINE FLUSH 10 ML IV PUSH ×3 (05:52→21:20)
[2021-12-18 06:08] LABS: Hematocrit 26.6 % (37.0-47.0); Hemoglobin 8.2 g/dL (12.0-15.0); Immature Platelet Fraction Pct 6.6 % (0.9-11.2); Mean Corpuscular HGB Conc 30.8 g/dl (32-36); Mean Corpuscular Hemoglobin 32.5 pg (26-34); Mean Corpuscular Volume 105.6 fl (80-100); Mean Platelet Volume 10.6 fl (7.4-10.4); Platelet Count Result 118 k/mm3 (150-375); Red Blood Count 2.52 M/mm3 (4.2-5.4); Red Cell Distribution Width 15.9 % (11.5-14.5); White Blood Count 17.7 K/mm3 (4.5-10.0)
[2021-12-18 06:17] LABS: Albumin Level 2.8 g/dL (3.5-5.1); Anion Gap 5 mmol/L (8-16); Blood Urea Nitrogen 20 mg/dL (7-17); Calcium 8.1 mg/dL (8.4-10.2); Carbon Dioxide 29 mmol/L (22-30); Chloride 99 mmol/L (98-107); Estimated CRCL calculation 28 ml/min; Estimated Glomerular Filt Rate 14; Glucose 100 mg/dL (65-110); Phosphorus 2.1 mg/dL (2.5-4.5); Potassium 3.5 mmol/L (3.4-5.0); Sodium 133 mmol/L (137-145)
[2021-12-18 07:25] LABS: Folic Acid > 20.0 ng/mL (2.76->20)
[2021-12-18] MEDS: SEVELAMER CARBONATE 800 MG TABLET 2400 MG PO ×3 (08:45→18:25)
[2021-12-18] MEDS: SIMETHICONE 80 MG TAB.CHEW PO ×4 (08:46→21:20)
[2021-12-18] MEDS: ASCORBIC ACID 250 MG TABLET PO ×2 (08:46→18:25)
[2021-12-18] MEDS: MULTIVITAMINS /C LUTEIN (CENTRUM SILVER) TABLET *BKC 1 TAB PO (08:46)
[2021-12-18 08:48] LABS: Glucose Point of Care 105 mg/dl (65-105)
[2021-12-18] MEDS: COLLAGENASE OINT 30 GM TUBE 1 APPLIC TOPICAL (08:51)
[2021-12-18] MEDS: TOLNAFTATE 1% POWDER 45 GM BTL 1 APPLIC TOPICAL ×2 (08:51→21:20)
--- NOTE | 2021-12-18 09:15 | PM.IMPN ---
Progress Note: A&P Assessment and Plan (1) Sepsis: Qualifiers: Sepsis acute organ dysfunction status: without acute organ dysfunction Sepsis type: sepsis due to unspecified organism Qualified Code(s): A41.9 - Sepsis, unspecified organism Code(s): A41.9 - Sepsis, unspecified organism Status: Acute Assessment and Plan: Patient sent into the ED from the CT for fever, cough and hypoxia. COVID swab was negative. Chest x-ray consistent with pneumonia. CT high-resolution of the chest shows diffuse lung disease likely pneumonia and septic emboli. Splenic subacute or chronic hematoma or infarct noted. CT of the abdomen pelvis does not show any acute findings but does show severe calcifications of majority of the abdominal arteries. She met criteria for sepsis with fever, tachycardia, and leukocytosis. And now has septicemia with positive blood cultures growing methicillin-resistant Staph Aureus (2of2). CT positive for aortic valve vegetation 0.7 cm x 0.8 cm. Leukocytosis is continued improved from 30/5 1000 admission to currently 17,000. She is allergic to Vancomycin. Continue Daptomycin and Zosyn for now. Repeat blood culture on 12/17/2021 pending. She has most likely catheter associated bloodstream infection. Has central line along with dialysis permanent catheter in place which likely needs to be removed due to this. Infectious disease needs to be consulted which we do not have in our facility. Consulted with [facility] for transferring the patient for further management. (2) Acute hyperkalemia: Code(s): E87.5 - Hyperkalemia Status: Acute Assessment and Plan: Potassium 6.0 on admission. This was treated appropriately. On repeat potassium was about the same so treatment was repeated. She was stabilized until such time as she could received dialysis. Potassium stabilized now. Will continue to monitor. Appreciate Nephrology input. Continue dialysis to control fluid status and electrolyte changes. (3) Pneumonia: Qualifiers: Laterality: bilateral Lung location: unspecified part of lung Pneumonia type: due to unspecified organism Qualified Code(s): J18.9 - Pneumonia, unspecified organism Code(s): J18.9 - Pneumonia, unspecified organism Status: Acute Assessment and Plan: As above. (4) ESRD on hemodialysis: Code(s): N18.6 - End stage renal disease; Z99.2 - Dependence on renal dialysis Status: Acute Assessment and Plan: Patient has end-stage renal disease. She has hemodialysis Monday-Monday -Monday. Because of her illness, she missed dialysis on 12/15/2021. She did have hyperkalemia on admission. She has undergone hemodialysis since admission with improvement of her potassium level. Her clinical pharmacy manager is Dr. Guzman. Continue Zita. Appreciate nephrology input (5) Anemia: Code(s): D64.9 - Anemia, unspecified Status: Chronic Assessment and Plan: Hgb 10.8 on admission.Patient has a history of anemia. Hemoglobin has trended down to 8.3. Most likely related to her acute end-stage renal disease. We will check iron studies. Check B12 as well given the elevated MCV. Epo been started. Continue to follow. (6) Thrombocytopenia: Code(s): D69.6 - Thrombocytopenia, unspecified Status: Acute Assessment and Plan: Plt count normal on admission but has dropped to 104K. Allred related to consumption. She came in on heparin and this was continued. Lately down stabilized today (7) Type 2 diabetes mellitus: Code(s): E11.9 - Type 2 diabetes mellitus without complications Status: Chronic Assessment and Plan: A1c 5.2. The patient's blood glucose was reviewed on 12/17 Glucose remains well controlled. Continue AccuCheks covering with sliding scale. Hypoglycemia protocol available as needed. Continue to monitor. (8) Calciphylaxis: Code(s): E83.59 - [facility]
[2021-12-18 09:46] LABS: Iron 29 ug/dL (37-170)
--- NOTE | 2021-12-18 09:46 | P.PNNP_ITS ---
Progress Note: A&P Assessment and Plan (1) End stage renal disease: Code(s): N18.6 - End stage renal disease Status: Chronic Assessment and Plan: * initiated on OPERATING ROOM TECH/dialysis in January 2021 * thought to be secondary to diabetes * normal schedule is M/W/F at [facility] * Hemodialysis done yesterday * Potassium is good today. * Volume status looks okay. (2) Hyperkalemia: Code(s): E87.5 - Hyperkalemia Status: Acute Assessment and Plan: * Resolved (3) Sepsis: Qualifiers: Sepsis acute organ dysfunction status: without acute organ dysfunction Sepsis type: sepsis due to unspecified organism Qualified Code(s): A41.9 - Sepsis, unspecified organism Code(s): A41.9 - Sepsis, unspecified organism Status: Acute Assessment and Plan: * She had fever, leukocytosis, hypotension, and tachycardia. * Heart rate still high * Temperature spike to 39.4. And she defervesced and now is 38.1. * . White count much better. * potential sources include HD catheter AND central line, pneumonia, calciphylaxis lesions/wounds * Staph aureus in the blood. * Her echo shows an aortic valve vegetation. Discussed at length with Dr. Escamilla. He is trying to have her transferred to a higher level of care. Consider removal of lines. I do not know the timing of the transfer so will not order this quite yet. * On piperacillin and daptomycin. (4) Pneumonia: Qualifiers: Laterality: bilateral Lung location: unspecified part of lung Pneumonia type: due to unspecified organism Qualified Code(s): J18.9 - Pneumonia, unspecified organism Code(s): J18.9 - Pneumonia, unspecified organism Status: Acute Assessment and Plan: * CXR suggestive * CT of chest with patchy airspace opacities and scattered nodules involving all lobes. Some of the nodules are cavitary suggesting septic emboli. * follow cultures * on antibiotics (5) Calciphylaxis: Code(s): E83.59 - Other disorders of calcium metabolism Status: Acute Assessment and Plan: * mainly localized to abdomen/abdominal pannus * was getting sodium thiosulfate * developed severe anion gap metabolic acidosis from use * this apparently resolved * local wound care (6) Hypotension: Code(s): I95.9 - Hypotension, unspecified Status: Chronic Assessment and Plan: * chronic issue at baseline * Try midodrine on dialysis today. (7) Anemia: Code(s): D64.9 - Anemia, unspecified Status: Chronic Assessment and Plan: * related to ESRD and acute illness * Epogen with HD * follow H/H (8) Type 2 diabetes mellitus: Code(s): E11.9 - Type 2 diabetes mellitus without complications Status: Chronic Assessment and Plan: * On Accu-Cheks and sliding-scale insulin Subjective Date/time seen: 12/18/21 09:46 Interval history: Patient is comfortable. She is lying flat in bed. No shortness of breath. She had dialysis yesterday and did well. Exam Narrative: WDWN in NAD skin no rash or subQ nodules head ncat lungs clear cor reg no rub or gallop abd BS+ nontender and soft ext 1+ bilateral edema. Objective Data Vital Signs Vital Signs: Vital Signs - 24 hr 12/17/21 10:00 12/17/21 10:40 12/17/21 10:49 Temperature 37.7 C H Pulse Rate 112 H 108 H 104 H Respiratory Rate 18
--- NOTE | 2021-12-18 09:46 | PM.PNNEP ---
Progress Note: A&P Assessment and Plan (1) End stage renal disease: Code(s): N18.6 - End stage renal disease Status: Chronic Assessment and Plan: initiated on SUPERVISOR LANDSCAPE/dialysis in January 2021 thought to be secondary to diabetes normal schedule is M// at [facility] Hemodialysis done yesterday Potassium is good today. Volume status looks okay. (2) Hyperkalemia: Code(s): E87.5 - Hyperkalemia Status: Acute Assessment and Plan: Resolved (3) Sepsis: Qualifiers: Sepsis acute organ dysfunction status: without acute organ dysfunction Sepsis type: sepsis due to unspecified organism Qualified Code(s): A41.9 - Sepsis, unspecified organism Code(s): A41.9 - Sepsis, unspecified organism Status: Acute Assessment and Plan: She had fever, leukocytosis, hypotension, and tachycardia. Heart rate still high Temperature spike to 39.4. And she defervesced and now is 38.1. . White count much better. potential sources include HD catheter AND central line, pneumonia, calciphylaxis lesions/wounds Staph aureus in the blood. Her echo shows an aortic valve vegetation. Discussed at length with Dr. Escamilla. He is trying to have her transferred to a higher level of care. Consider removal of lines. I do not know the timing of the transfer so will not order this quite yet. On piperacillin and daptomycin. (4) Pneumonia: Qualifiers: Laterality: bilateral Lung location: unspecified part of lung Pneumonia type: due to unspecified organism Qualified Code(s): J18.9 - Pneumonia, unspecified organism Code(s): J18.9 - Pneumonia, unspecified organism Status: Acute Assessment and Plan: CXR suggestive CT of chest with patchy airspace opacities and scattered nodules involving all lobes. Some of the nodules are cavitary suggesting septic emboli. follow cultures on antibiotics (5) Calciphylaxis: Code(s): E83.59 - Other disorders of calcium metabolism Status: Acute Assessment and Plan: mainly localized to abdomen/abdominal pannus was getting sodium thiosulfate developed severe anion gap metabolic acidosis from use this apparently resolved local wound care (6) Hypotension: Code(s): I95.9 - Hypotension, unspecified Status: Chronic Assessment and Plan: chronic issue at baseline Try midodrine on dialysis today. (7) Anemia: Code(s): D64.9 - Anemia, unspecified Status: Chronic Assessment and Plan: related to ESRD and acute illness Epogen with HD follow H/H (8) Type 2 diabetes mellitus: Code(s): E11.9 - Type 2 diabetes mellitus without complications Status: Chronic Assessment and Plan: On Accu-Cheks and sliding-scale insulin Subjective Date/time seen: 12/18/21 09:46 Interval history: Patient is comfortable. She is lying flat in bed. No shortness of breath. She had dialysis yesterday and did well. Exam Narrative: WDWN in NAD skin no rash or subQ nodules head ncat lungs clear cor reg no rub or gallop abd BS+ nontender and soft ext 1+ bilateral edema. Objective Data Vital Signs Vital Signs: Vital Signs - 24 hr 12/17/21 10:00 12/17/21 10:40 12/17/21 10:49 Temperature 37.7 C H Pulse Rate 112 H 108 H 104 H Respiratory Rate 18 Blood Pressure 111/51 L 114/44 L Pulse Oximetry 12/17/21 11:00 12/17/21 11:15 12/17/21 11:30 Temperature Pulse Rate 107 H 120 H 113 H Respiratory Rate Blood Pressure 106/50 L 131/26 L 162/31 H Pulse Oximetry 12/17/21 11:45 12/17/21 12:00 12/17/21 12:15 Temperature Pulse Rate 133 H 135 H 78 Respiratory Rate Blood Pressure 134/49 L 110/36 L 98/58 L Pulse Oximetry 94 12/17/21 12:30 12/17/21 12:45 12/17/21 13:00 Temperature Pulse Rate 126 H 121 H 120 H Respiratory Rate Blood Pressure 126/46 L 116/52 L 119/38 L Pulse Oximetry 11/21
[2021-12-18 09:59] LABS: Percent Iron Saturation 23 % (20-50)
[2021-12-18 12:17] LABS: Ferritin > 2000.00 ng/mL (6.24-137)
[2021-12-18] MEDS: ACETAMINOPHEN ELIXIR 325 MG/10.15 ML UDC 650 MG PO ×2 (12:52→21:02)
[2021-12-18 13:04] LABS: Glucose Point of Care 114 mg/dl (65-105)
[2021-12-18 17:02] LABS: Glucose Point of Care 139 mg/dl (65-105)
[2021-12-18] MEDS: HYDROcodone/acetaminophen (*CRX) 7.5-325 MG TABLET 1 TAB PO (21:05)
[2021-12-18 21:37] LABS: Glucose Point of Care 121 mg/dl (65-105)
[2021-12-19] VITALS (20 sets, daily range): BP systolic 106–133; BP diastolic 41–73; PULSE 98–120; RESP 20–26; TEMP 36.4–39.5; O2SAT 93–97
[2021-12-19] MEDS: METOCLOPRAMIDE HCL 10 MG/10 ML SOLN UDC 5 MG PO ×5 (00:17→23:24)
[2021-12-19 05:06] LABS: Hepatitis B Core Ab Total Nonreactive (Nonreactive)
[2021-12-19 05:10] LABS: Basophils Absolute Auto 0.1 K/mm3 (0.0-0.1); Basophils Percent Auto 0.4 % (0.2-1.2); Eosinophils Absolute Auto 0.3 K/mm3 (0-0.3); Eosinophils Percent Auto 1.2 % (0-4.4); Hematocrit 26.8 % (37.0-47.0); Hemoglobin 8.3 g/dL (12.0-15.0); Immature Granulocyte Absolute 0.53 K/mm3 (0.00-0.031); Immature Granulocyte Percent A 2.5 % (0-0.5); Lymphocytes Absolute Auto 1.46 K/mm3 (0.9-3.2); Lymphocytes Percent Auto 6.9 % (18.3-44.2); Mean Corpuscular Hemoglobin 32.2 pg (26-34); Mean Corpuscular Volume 103.9 fl (80-100); Mean Platelet Volume 11.1 fl (7.4-10.4); Monocytes Absolute Auto 1.3 K/mm3 (0.1-0.6); Monocytes Percent Auto 6.1 % (2.6-8.5); Neutrophils Absolute Auto 17.5 K/mm3 (1.3-6.7); Neutrophils Percent Auto 82.9 % (45.5-73.1); Platelet Count Result 117 k/mm3 (150-375); Red Blood Count 2.58 M/mm3 (4.2-5.4); Red Cell Distribution Width 15.9 % (11.5-14.5); White Blood Count 21.1 K/mm3 (4.5-10.0)
[2021-12-19 05:25] LABS: Alanine Aminotransferase 11 U/L (4-35); Albumin Level 2.7 g/dL (3.5-5.1); Alkaline Phosphatase 93 U/L (38-126); Anion Gap 5 mmol/L (8-16); Aspartate Amino Transferase 16 U/L (14-36); Bilirubin,Total 0.5 mg/dL (0.2-1.3); Blood Urea Nitrogen 30 mg/dL (7-17); Calcium 8.1 mg/dL (8.4-10.2); Carbon Dioxide 27 mmol/L (22-30); Chloride 97 mmol/L (98-107); Estimated CRCL calculation 19 ml/min; Estimated Glomerular Filt Rate 9; Glucose 102 mg/dL (65-110); Potassium 3.7 mmol/L (3.4-5.0); Sodium 129 mmol/L (137-145)
[2021-12-19] MEDS: HEPARIN SODIUM 5,000 UNITS/ML VIAL 5000 UNITS SUB-Q ×3 (06:34→21:05)
[2021-12-19] MEDS: ACETAMINOPHEN ELIXIR 325 MG/10.15 ML UDC 650 MG PO ×2 (06:35→18:23)
[2021-12-19] MEDS: CENTRAL LINE FLUSH 10 ML IV PUSH ×2 (06:38→13:06)
[2021-12-19] MEDS: LEVOTHYROXINE SODIUM 25 MCG TABLET PO (06:38)
[2021-12-19 07:29] LABS: Glucose Point of Care 91 mg/dl (65-105)
--- NOTE | 2021-12-19 08:53 | PC.NURSE ---
Spoke with [facility] transfer center at [id number]. Updated set of vitals given and patient condition. No bed available at this time.
[2021-12-19] MEDS: ASCORBIC ACID 250 MG TABLET PO ×2 (09:44→18:02)
[2021-12-19] MEDS: SEVELAMER CARBONATE 800 MG TABLET 2400 MG PO ×3 (09:44→18:01)
[2021-12-19] MEDS: SIMETHICONE 80 MG TAB.CHEW PO ×4 (09:44→21:05)
[2021-12-19] MEDS: TOLNAFTATE 1% POWDER 45 GM BTL 1 APPLIC TOPICAL ×2 (09:45→21:05)
[2021-12-19] MEDS: MULTIVITAMINS /C LUTEIN (CENTRUM SILVER) TABLET *BKC 1 TAB PO (09:45)
[2021-12-19] MEDS: COLLAGENASE OINT 30 GM TUBE 1 APPLIC TOPICAL (09:46)
--- NOTE | 2021-12-19 10:01 | P.PNNP_ITS ---
Progress Note: A&P Assessment and Plan (1) End stage renal disease: Code(s): N18.6 - End stage renal disease Status: Chronic Assessment and Plan: * initiated on RESIDENT DOCTOR/dialysis in January 2021 * thought to be secondary to diabetes * normal schedule is M/W/F at [facility] * Hemodialysis do tomorrow morning. Will do 1st shift and remove PermCath after that. * Potassium is good today. * Volume status looks okay. (2) Hyperkalemia: Code(s): E87.5 - Hyperkalemia Status: Acute Assessment and Plan: * Resolved (3) Sepsis: Qualifiers: Sepsis acute organ dysfunction status: without acute organ dysfunction Sepsis type: sepsis due to unspecified organism Qualified Code(s): A41.9 - Sepsis, unspecified organism Code(s): A41.9 - Sepsis, unspecified organism Status: Acute Assessment and Plan: * She had fever, leukocytosis, hypotension, and tachycardia. * Heart rate still high * Temperature spike to 39.5. And she defervesced and now is 38.1. * . White count much better. * potential sources include HD catheter AND central line, pneumonia, calciphylaxis lesions/wounds * Staph aureus in the blood. * Her echo shows an aortic valve vegetation. Discussed at length with Dr. Juli spencer. He is trying to have her transferred to a higher level of care. * Will get another dialysis tomorrow. Will ask surgery to remove the PermCath. (4) Pneumonia: Qualifiers: Laterality: bilateral Lung location: unspecified part of lung Pneumonia type: due to unspecified organism Qualified Code(s): J18.9 - Pneumonia, unspecified organism Code(s): J18.9 - Pneumonia, unspecified organism Status: Acute Assessment and Plan: * CXR suggestive * CT of chest with patchy airspace opacities and scattered nodules involving all lobes. Some of the nodules are cavitary suggesting septic emboli. * follow cultures * on antibiotics (5) Calciphylaxis: Code(s): E83.59 - Other disorders of calcium metabolism Status: Acute Assessment and Plan: * mainly localized to abdomen/abdominal pannus * was getting sodium thiosulfate * developed severe anion gap metabolic acidosis from use * this apparently resolved * local wound care (6) Hypotension: Code(s): I95.9 - Hypotension, unspecified Status: Chronic Assessment and Plan: * chronic issue at baseline * Try midodrine on dialysis today. (7) Anemia: Code(s): D64.9 - Anemia, unspecified Status: Chronic Assessment and Plan: * related to ESRD and acute illness * Epogen with HD * Hemoglobin 8.3. (8) Type 2 diabetes mellitus: Code(s): E11.9 - Type 2 diabetes mellitus without complications Status: Chronic Assessment and Plan: * On Accu-Cheks and sliding-scale insulin Subjective Date/time seen: 12/19/21 10:01 Interval history: Patient is comfortable. She is lying flat in bed. has been spiking fevers. No shortness of breath. She had dialysis yesterday and did well. Exam Narrative: WDWN in NAD skin no rash or subQ nodules head ncat lungs clear to auscultation cor reg no rub or gallop abd BS+ nontender and soft ext 1+ bilateral edema. Objective Data Vital Signs Vital Signs: Vital Signs - 24 hr 12/18/21 12:00 12/18/21 12:52 12/18/21 13:15 Temperature 38.7 C H 37.4 C
--- NOTE | 2021-12-19 10:01 | PM.PNNEP ---
Progress Note: A&P Assessment and Plan (1) End stage renal disease: Code(s): N18.6 - End stage renal disease Status: Chronic Assessment and Plan: initiated on TECHNOLOGY EDUCATION INSTRUCTOR/dialysis in January 2021 thought to be secondary to diabetes normal schedule is M/W/F at [facility] Hemodialysis do tomorrow morning. Will do 1st shift and remove PermCath after that. Potassium is good today. Volume status looks okay. (2) Hyperkalemia: Code(s): E87.5 - Hyperkalemia Status: Acute Assessment and Plan: Resolved (3) Sepsis: Qualifiers: Sepsis acute organ dysfunction status: without acute organ dysfunction Sepsis type: sepsis due to unspecified organism Qualified Code(s): A41.9 - Sepsis, unspecified organism Code(s): A41.9 - Sepsis, unspecified organism Status: Acute Assessment and Plan: She had fever, leukocytosis, hypotension, and tachycardia. Heart rate still high Temperature spike to 39.5. And she defervesced and now is 38.1. . White count much better. potential sources include HD catheter AND central line, pneumonia, calciphylaxis lesions/wounds Staph aureus in the blood. Her echo shows an aortic valve vegetation. Discussed at length with Dr. Escamilla. He is trying to have her transferred to a higher level of care. Will get another dialysis tomorrow. Will ask surgery to remove the PermCath. (4) Pneumonia: Qualifiers: Laterality: bilateral Lung location: unspecified part of lung Pneumonia type: due to unspecified organism Qualified Code(s): J18.9 - Pneumonia, unspecified organism Code(s): J18.9 - Pneumonia, unspecified organism Status: Acute Assessment and Plan: CXR suggestive CT of chest with patchy airspace opacities and scattered nodules involving all lobes. Some of the nodules are cavitary suggesting septic emboli. follow cultures on antibiotics (5) Calciphylaxis: Code(s): E83.59 - Other disorders of calcium metabolism Status: Acute Assessment and Plan: mainly localized to abdomen/abdominal pannus was getting sodium thiosulfate developed severe anion gap metabolic acidosis from use this apparently resolved local wound care (6) Hypotension: Code(s): I95.9 - Hypotension, unspecified Status: Chronic Assessment and Plan: chronic issue at baseline Try midodrine on dialysis today. (7) Anemia: Code(s): D64.9 - Anemia, unspecified Status: Chronic Assessment and Plan: related to ESRD and acute illness Epogen with HD Hemoglobin 8.3. (8) Type 2 diabetes mellitus: Code(s): E11.9 - Type 2 diabetes mellitus without complications Status: Chronic Assessment and Plan: On Accu-Cheks and sliding-scale insulin Subjective Date/time seen: 12/19/21 10:01 Interval history: Patient is comfortable. She is lying flat in bed. has been spiking fevers. No shortness of breath. She had dialysis yesterday and did well. Exam Narrative: WDWN in NAD skin no rash or subQ nodules head ncat lungs clear to auscultation cor reg no rub or gallop abd BS+ nontender and soft ext 1+ bilateral edema. Objective Data Vital Signs Vital Signs: Vital Signs - 24 hr 12/18/21 12:00 12/18/21 12:52 12/18/21 13:15 Temperature 38.7 C H 37.4 C Pulse Rate 115 H 121 H Respiratory Rate 20 Blood Pressure 109/52 L Pulse Oximetry 96 95 12/18/21 14:00 12/18/21 16:00 12/18/21 16:22 Temperature 36.4 C L Pulse Rate 106 H 108 H 112 H Respiratory Rate 22 H Blood Pressure 127/37 L Pulse Oximetry 95 98 12/18/21 18:00 12/18/21 20:00 12/18/21 21:02 Temperature 38.8 C H 38.8 C H Pulse Rate 112 H 109 H Respiratory Rate 32 H Blood Pressure 141/77 H Pulse Oximetry 90 12/18/21 22:00 12/18/21 22:02 12/19/21 00:00 Temperature 37.4 C 37.4 C Pulse Rate 129 H 110 H Respiratory Rate 26 H Blood
--- NOTE | 2021-12-19 11:19 | PM.CNGS ---
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 (2) Complication of vascular access for dialysis: Qualifiers: Encounter type: initial encounter Qualified Code(s): T82.9XXA - Unspecified complication of cardiac and vascular prosthetic device, implant and graft, initial encounter Code(s): T82.9XXA - Unspecified complication of cardiac and vascular prosthetic device, implant and graft, initial encounter Status: Acute Assessment and Plan: Will remove tunneled right IJ central venous catheter for dialysis after dialysis either Monday or Monday. Discussed with patient. (3) Sepsis: Qualifiers: Sepsis acute organ dysfunction status: without acute organ dysfunction Sepsis type: sepsis due to unspecified organism Qualified Code(s): A41.9 - Sepsis, unspecified organism Code(s): A41.9 - Sepsis, unspecified organism Status: Acute Assessment and Plan: Still spiking fevers to 39.5 (4) ESRD on hemodialysis: Code(s): N18.6 - End stage renal disease; Z99.2 - Dependence on renal dialysis Status: Chronic History of Present Illness Consult details Consult date: 12/19/21 Narrative: Asked to see patient for removal of tunneled dialysis catheter after dialysis tomorrow. Meds Home Medications and Allergies Home Medications Medication Instructions Recorded Confirmed Type ascorbic acid (vitamin C) 250 mg PO BID 12/15/21 12/16/21 History ergocalciferol (vitamin D2) 1,250 mcg PO WEEKLY 12/15/21 12/15/21 History fentanyl 1 patch TRANSDERMAL Q72H 12/15/21 12/16/21 History heparin (porcine) 7,500 unit Q8H 12/15/21 12/16/21 History hydrocodone-acetaminophen [Casmalia] 1 tablet PO HS 12/15/21 12/15/21 History hydroxyzine HCl 10 mg PO QID PRN 12/15/21 12/15/21 History insulin lispro [Humalog KwikPen See Rx Instructions .ROUTE .COMPLEX 12/15/21 12/16/21 History Insulin] levothyroxine 25 mcg PO DAILY 12/15/21 12/15/21 History loperamide 2 mg PO PRN PRN 12/15/21 12/15/21 History metoclopramide HCl 5 mg PO TIDHS 12/15/21 12/16/21 History sevelamer carbonate 2.4 g PO TID 12/15/21 12/15/21 History nmpchqtgoyax-xqe-dgng-FA-vit K 1 tablet PO DAILY 12/16/21 12/16/21 History [Multi-Day Plus Minerals] Allergies Allergy/AdvReac Type Severity Reaction Status Date / Time vancomycin Allergy Rash Verified 12/15/21 18:27 Vital Signs Vital Signs - 24 hr 12/18/21 12:00 12/18/21 12:52 12/18/21 13:15 Temperature 38.7 C H 37.4 C Pulse Rate 115 H 121 H Respiratory Rate 20 Blood Pressure 109/52 L Pulse Oximetry 96 95 12/18/21 14:00 12/18/21 16:00 12/18/21 16:22 Temperature 36.4 C L Pulse Rate 106 H 108 H 112 H Respiratory Rate 22 H Blood Pressure 127/37 L Pulse Oximetry 95 98 12/18/21 18:00 12/18/21 20:00 12/18/21 21:02 Temperature 38.8 C H 38.8 C H Pulse Rate 112 H 109 H Respiratory Rate 32 H Blood Pressure 141/77 H Pulse Oximetry 90 12/18/21 22:00 12/18/21 22:02 12/19/21 00:00 Temperature 37.4 C 37.4 C Pulse Rate 129 H 110 H Respiratory Rate 26 H Blood Pressure 109/44 L Pulse Oximetry 94 12/19/21 00:12 12/19/21 02:00 12/19/21 04:00 Temperature 37.9 C H Pulse Rate 100 106 H Respiratory Rate 24 H Blood Pressure 128/73 Pulse Oximetry 94 94 12/19/21 06:00 12/19/21 06:35 12/19/21 07:32 Temperature 37.9 C H 39.5 C H Pulse Rate 110 H 119 H Respiratory Rate 24 H Blood Pressure 133/47 L Pulse Oximetry 93 12/19/21 09:39 Temperature 37.4 C Pulse Rate Respiratory Rate Blood Pressure Pulse Oximetry Exam Chest: Chest palpation & inspection: other (Tunneled catheter exits below clavicle right chest) Results Labs Result diagrams: 12/19/21 04:48 12/19/21 04:48
[2021-12-19 12:34] LABS: Glucose Point of Care 97 mg/dl (65-105)
[2021-12-19] MEDS: fentaNYL (*CRX) 25 MCG PATCH TRANSDERM (13:05)
--- NOTE | 2021-12-19 15:51 | PM.IMPN ---
Progress Note: A&P Assessment and Plan (1) Sepsis: Qualifiers: Sepsis acute organ dysfunction status: without acute organ dysfunction Sepsis type: sepsis due to unspecified organism Qualified Code(s): A41.9 - Sepsis, unspecified organism Code(s): A41.9 - Sepsis, unspecified organism Status: Acute Assessment and Plan: Patient sent into the ED from the [place] for fever, cough and hypoxia. COVID swab was negative. Chest x-ray consistent with pneumonia. CT high-resolution of the chest shows diffuse lung disease likely pneumonia and septic emboli. Splenic subacute or chronic hematoma or infarct noted. CT of the abdomen pelvis does not show any acute findings but does show severe calcifications of majority of the abdominal arteries. She met criteria for sepsis with fever, tachycardia, and leukocytosis. And now has septicemia with positive blood cultures growing methicillin-resistant Staph Aureus (2of2). CT positive for aortic valve vegetation 0.7 cm x 0.8 cm. Leukocytosis is continued improved from 30/5 1000 admission to currently 17,000. She is allergic to Vancomycin. Continue Daptomycin and Zosyn for now. Repeat blood culture on 12/17/2021 pending. She has most likely catheter associated bloodstream infection. Has central line along with dialysis permanent catheter in place which likely needs to be removed due to this. Infectious disease needs to be consulted which we do not have in our facility. Consulted with [facility] and [facility] for transferring the patient for further management. They have accepted but awaiting bed availability Ongoing fever. Will have a peripheral line placed if able will get the central line out today. Send central line tip for culture General surgery has been consulted as well for removal of dialysis catheter after dialysis tomorrow. (2) Acute hyperkalemia: Code(s): E87.5 - Hyperkalemia Status: Acute Assessment and Plan: Potassium 6.0 on admission. This was treated appropriately. On repeat potassium was about the same so treatment was repeated. She was stabilized until such time as she could received dialysis. Potassium stabilized now. Will continue to monitor. Appreciate Nephrology input. Continue dialysis to control fluid status and electrolyte changes. (3) Pneumonia: Qualifiers: Laterality: bilateral Lung location: unspecified part of lung Pneumonia type: due to unspecified organism Qualified Code(s): J18.9 - Pneumonia, unspecified organism Code(s): J18.9 - Pneumonia, unspecified organism Status: Acute Assessment and Plan: As above. (4) ESRD on hemodialysis: Code(s): N18.6 - End stage renal disease; Z99.2 - Dependence on renal dialysis Status: Chronic Assessment and Plan: Patient has end-stage renal disease. She has hemodialysis Monday-Monday -Monday. Because of her illness, she missed dialysis on 12/15/2021. She did have hyperkalemia on admission. She has undergone hemodialysis since admission with improvement of her potassium level. Her mink rancher is Dr. Guzman. Marcie Ahumada. Appreciate nephrology input (5) Anemia: Code(s): D64.9 - Anemia, unspecified Status: Chronic Assessment and Plan: Hgb 10.8 on admission.Patient has a history of anemia. Hemoglobin has trended down to 8.3. Most likely related to her acute end-stage renal disease. We will check iron studies. Check B12 as well given the elevated MCV. Epo been started. Continue to follow. (6) Thrombocytopenia: Code(s): D69.6 - Thrombocytopenia, unspecified Status: Acute Assessment and Plan: Plt count normal on admission but has dropped to 104K. [place] related to consumption. She came in on heparin and this was continued. Lately down stabilized today (7) Type 2 diabetes mellitus: Code(s): E11.9 - Type 2 diabetes mellitus without complications S
[2021-12-19 17:19] LABS: Glucose Point of Care 90 mg/dl (65-105)
[2021-12-19 18:23] LABS: Glucose Point of Care 97 mg/dl (65-105)
[2021-12-19 20:21] LABS: Glucose Point of Care 90 mg/dl (65-105)
[2021-12-19] MEDS: HYDROcodone/acetaminophen (*CRX) 7.5-325 MG TABLET 1 TAB PO (21:05)
[2021-12-20] VITALS (31 sets, daily range): BP systolic 84–143; BP diastolic 24–57; PULSE 69–120; RESP 18–96; TEMP 36–37.4; O2SAT 95–97; BMI 41.6
[2021-12-20] MEDS: ACETAMINOPHEN ELIXIR 325 MG/10.15 ML UDC 650 MG PO ×3 (04:27→20:32)
[2021-12-20] MEDS: METOCLOPRAMIDE HCL 10 MG/10 ML SOLN UDC 5 MG PO ×3 (04:28→18:51)
[2021-12-20] MEDS: LEVOTHYROXINE SODIUM 25 MCG TABLET PO (04:28)
[2021-12-20] MEDS: HEPARIN SODIUM 5,000 UNITS/ML VIAL 5000 UNITS SUB-Q ×3 (04:28→20:32)
[2021-12-20] MEDS: hydrOXYzine HCL 10 MG TABLET PO (04:28)
[2021-12-20] MEDS: DAPTOmycin 500 MG in SODIUM CHLORIDE 0.9% IV 50 ML 100 MG IVPB (04:35)
[2021-12-20 05:19] LABS: Hematocrit 28.7 % (37.0-47.0); Hemoglobin 8.5 g/dL (12.0-15.0); Mean Corpuscular HGB Conc 29.6 g/dl (32-36); Mean Corpuscular Hemoglobin 31.5 pg (26-34); Mean Corpuscular Volume 106.3 fl (80-100); Mean Platelet Volume 11.1 fl (7.4-10.4); Platelet Count Result 168 k/mm3 (150-375); Red Cell Distribution Width 16.1 % (11.5-14.5); White Blood Count 22.1 K/mm3 (4.5-10.0)
[2021-12-20 05:41] LABS: Alanine Aminotransferase 12 U/L (4-35); Albumin Level 2.9 g/dL (3.5-5.1); Alkaline Phosphatase 111 U/L (38-126); Anion Gap 9 mmol/L (8-16); Aspartate Amino Transferase 20 U/L (14-36); Bilirubin,Total 0.5 mg/dL (0.2-1.3); Blood Urea Nitrogen 41 mg/dL (7-17); Calcium 8.3 mg/dL (8.4-10.2); Carbon Dioxide 27 mmol/L (22-30); Chloride 96 mmol/L (98-107); Estimated CRCL calculation 16 ml/min; Estimated Glomerular Filt Rate 7; Glucose 97 mg/dL (65-110); Phosphorus 1.8 mg/dL (2.5-4.5); Potassium 4.5 mmol/L (3.4-5.0); Sodium 132 mmol/L (137-145)
[2021-12-20 05:46] LABS: Anisocytosis 1+ (NORMAL); Band Neutrophils Percent 5 % (0-6); Lymphocytes Absolute Manual 2.21 K/mm3 (1.1-4.5); Monocytes Absolute Manual 0.44 K/mm3 (0.1-0.90); Monocytes Percent Manual 2 % (3-9); Neutrophils Absolute Manual 19.44 K/mm3 (1.7-7.2); Neutrophils Percent Manual 83 % (46-73); Total Cells Counted 100
[2021-12-20 05:47] LABS: Hypochromasia 1+ (NORMAL); Platelet Estimate Adequate (Adequate)
[2021-12-20 08:30] LABS: Glucose Point of Care 85 mg/dl (65-105)
--- NOTE | 2021-12-20 11:21 | PM.IMPN ---
Progress Note: A&P Assessment and Plan (1) Sepsis: Qualifiers: Sepsis acute organ dysfunction status: without acute organ dysfunction Sepsis type: sepsis due to unspecified organism Qualified Code(s): A41.9 - Sepsis, unspecified organism Code(s): A41.9 - Sepsis, unspecified organism Status: Acute Assessment and Plan: Patient sent into the ED from the [place] for fever, cough and hypoxia. COVID swab was negative. HRCT of the chest shows diffuse lung disease likely pneumonia and septic emboli. Splenic subacute or chronic hematoma or infarct noted. CT of the abdomen pelvis does not show any acute findings but does show severe calcifications of majority of the abdominal arteries. She met criteria for sepsis with fever, tachycardia, and leukocytosis. And now has septicemia with positive blood cultures (12/15/21) growing methicillin-resistant Staph Aureus (2of2). Echo for aortic valve vegetation 0.7 cm x 0.8 cm. Leukocytosis was improving but worse now to 22K. She is allergic to Vancomycin so Daptomycin and Zosyn started. Repeat blood culture on 12/17/21 also positive for MRSA (2of2). She has most likely catheter associated bloodstream infection with a central line and dialysis permanent catheter in place on admission. Central line removed; Plan to remove HD catheter after HD today. Abx changed to Daptomycin and Ceftaroline. Infectious disease needs to be consulted which we do not have in our facility. Consulted with [facility] and [facility] for transferring the patient for further management. They have accepted but awaiting bed availability. (2) Aortic valve endocarditis: Code(s): I35.8 - Other nonrheumatic aortic valve disorders Status: Acute Assessment and Plan: Echo showing vegetation on the aortic valve consistent with aortic valve endocarditits. As above. (3) Acute hyperkalemia: Code(s): E87.5 - Hyperkalemia Status: Acute Assessment and Plan: Potassium 6.0 on admission related to her missing HD. This was treated appropriately. On repeat potassium was about the same so treatment was repeated. She was stabilized until such time as she could received dialysis. Potassium stabilized now that she is having regular HD. Will continue to monitor. Appreciate Nephrology input. Continue dialysis to control fluid status and electrolyte changes. (4) Pneumonia: Qualifiers: Laterality: bilateral Lung location: unspecified part of lung Pneumonia type: due to unspecified organism Qualified Code(s): J18.9 - Pneumonia, unspecified organism Code(s): J18.9 - Pneumonia, unspecified organism Status: Acute Assessment and Plan: As above. (5) ESRD on hemodialysis: Code(s): N18.6 - End stage renal disease; Z99.2 - Dependence on renal dialysis Status: Chronic Assessment and Plan: Patient has end-stage renal disease. She has hemodialysis Monday-Monday -Monday. Because of her illness, she missed dialysis on 12/15/21. She did have hyperkalemia on admission. She has undergone hemodialysis since admission with improvement of her potassium level. Her caser up is Dr. Guzman. Marcie Ahumada. Appreciate nephrology input (6) Complication of vascular access for dialysis: Qualifiers: Encounter type: initial encounter Qualified Code(s): T82.9XXA - Unspecified complication of cardiac and vascular prosthetic device, implant and graft, initial encounter Code(s): T82.9XXA - Unspecified complication of cardiac and vascular prosthetic device, implant and graft, initial encounter Status: Acute Assessment and Plan: As above. Plan to remove HD catheter today after HD. Keep catheter out for as long as possible. (7) Anemia: Code(s): D64.9 - Anemia, unspecified Status: Chronic Assessment and Plan: Hgb 10.8 on admission.Patient has a history of anemia. Hemoglobin has
[2021-12-20] MEDS: SEVELAMER CARBONATE 800 MG TABLET 2400 MG PO (11:38)
[2021-12-20] MEDS: ASCORBIC ACID 250 MG TABLET PO ×2 (11:39→18:51)
[2021-12-20] MEDS: SIMETHICONE 80 MG TAB.CHEW PO ×4 (11:39→20:32)
[2021-12-20] MEDS: TOLNAFTATE 1% POWDER 45 GM BTL 1 APPLIC TOPICAL ×2 (11:40→20:32)
[2021-12-20] MEDS: MULTIVITAMINS /C LUTEIN (CENTRUM SILVER) TABLET *BKC 1 TAB PO (11:40)
[2021-12-20] MEDS: COLLAGENASE OINT 30 GM TUBE 1 APPLIC TOPICAL (11:41)
[2021-12-20 12:46] LABS: Glucose Point of Care 85 mg/dl (65-105)
[2021-12-20] MEDS: HYDROcodone/acetaminophen (*CRX) 5-325 MG TABLET 1 TAB PO ×2 (12:47→20:33)
--- NOTE | 2021-12-20 13:21 | P.PNNP_ITS ---
Progress Note: A&P Assessment and Plan (1) End stage renal disease: Code(s): N18.6 - End stage renal disease Status: Chronic Assessment and Plan: * initiated on CUSTOM DRESSMAKER/dialysis in January 2021 * thought to be secondary to diabetes * normal schedule is M/W/F at [facility] * Hemodialysis Later today * Potassium is good today. * Volume status is good (2) Hyperkalemia: Code(s): E87.5 - Hyperkalemia Status: Acute Assessment and Plan: * Resolved (3) Sepsis: Qualifiers: Sepsis acute organ dysfunction status: without acute organ dysfunction Sepsis type: sepsis due to unspecified organism Qualified Code(s): A41.9 - Sepsis, unspecified organism Code(s): A41.9 - Sepsis, unspecified organism Status: Acute Assessment and Plan: * She had fever, leukocytosis, hypotension, and tachycardia. * Heart rate still high * Temperature spike to 39.5. And she defervesced and now is 38.1. * .White count much better than on admission but is back up now.. * potential sources include HD catheter AND central line, pneumonia, calciphylaxis lesions/wounds * Staph aureus in the blood. * on daptomycin and ceftaroline * Her echo shows an aortic valve vegetation. Trying to transfer to tertiary care center. * Will get another dialysis today. Then PermCath comes out. (4) Pneumonia: Qualifiers: Laterality: bilateral Lung location: unspecified part of lung Pneumonia type: due to unspecified organism Qualified Code(s): J18.9 - Pneumonia, unspecified organism Code(s): J18.9 - Pneumonia, unspecified organism Status: Acute Assessment and Plan: * Due to septic pulmonary emboli (5) Calciphylaxis: Code(s): E83.59 - Other disorders of calcium metabolism Status: Acute Assessment and Plan: * mainly localized to abdomen/abdominal pannus * was getting sodium thiosulfate * developed severe anion gap metabolic acidosis from use * this apparently resolved * local wound care (6) Hypotension: Code(s): I95.9 - Hypotension, unspecified Status: Chronic Assessment and Plan: * chronic issue at baseline * Try midodrine on dialysis today. (7) Anemia: Code(s): D64.9 - Anemia, unspecified Status: Chronic Assessment and Plan: * related to ESRD and acute illness * Epogen with HD * Hemoglobin 8.3. (8) Type 2 diabetes mellitus: Code(s): E11.9 - Type 2 diabetes mellitus without complications Status: Chronic Assessment and Plan: * On Accu-Cheks and sliding-scale insulin Subjective Date/time seen: 12/20/21 13:21 Interval history: Patient is comfortable. She is lying flat in bed. She still has been spiking fevers. No shortness of breath. generalized discomfort in upper back and chest. Exam Narrative: WDWN in NAD skin no rash or subQ nodules head ncat lungs clear cor reg no rub abd BS+ nontender and soft ext 1+ bilateral edema. Objective Data Vital Signs Vital Signs: Vital Signs - 24 hr 12/19/21 14:00 12/19/21 16:00 12/19/21 18:00 Temperature 39.5 C H Pulse Rate 112 H 120 H 115 H Respiratory Rate 24 H Blood Pressure 121/45 L Pulse Oximetry 95 12/19/21 20:00 12/19/21 21:14 12/19/21 22:00 Temperature 37.3 C Pulse R
--- NOTE | 2021-12-20 13:21 | PM.PNNEP ---
Progress Note: A&P Assessment and Plan (1) End stage renal disease: Code(s): N18.6 - End stage renal disease Status: Chronic Assessment and Plan: initiated on LINE LEADER/dialysis in January 2021 thought to be secondary to diabetes normal schedule is M/W/F at [facility] Later today Potassium is good today. Volume status is good (2) Hyperkalemia: Code(s): E87.5 - Hyperkalemia Status: Acute Assessment and Plan: Resolved (3) Sepsis: Qualifiers: Sepsis acute organ dysfunction status: without acute organ dysfunction Sepsis type: sepsis due to unspecified organism Qualified Code(s): A41.9 - Sepsis, unspecified organism Code(s): A41.9 - Sepsis, unspecified organism Status: Acute Assessment and Plan: She had fever, leukocytosis, hypotension, and tachycardia. Heart rate still high Temperature spike to 39.5. And she defervesced and now is 38.1. .White count much better than on admission but is back up now.. potential sources include HD catheter AND central line, pneumonia, calciphylaxis lesions/wounds Staph aureus in the blood. on daptomycin and ceftaroline Her echo shows an aortic valve vegetation. Trying to transfer to tertiary care center. Will get another dialysis today. Then PermCath comes out. (4) Pneumonia: Qualifiers: Laterality: bilateral Lung location: unspecified part of lung Pneumonia type: due to unspecified organism Qualified Code(s): J18.9 - Pneumonia, unspecified organism Code(s): J18.9 - Pneumonia, unspecified organism Status: Acute Assessment and Plan: Due to septic pulmonary emboli (5) Calciphylaxis: Code(s): E83.59 - Other disorders of calcium metabolism Status: Acute Assessment and Plan: mainly localized to abdomen/abdominal pannus was getting sodium thiosulfate developed severe anion gap metabolic acidosis from use this apparently resolved local wound care (6) Hypotension: Code(s): I95.9 - Hypotension, unspecified Status: Chronic Assessment and Plan: chronic issue at baseline Try midodrine on dialysis today. (7) Anemia: Code(s): D64.9 - Anemia, unspecified Status: Chronic Assessment and Plan: related to ESRD and acute illness Epogen with HD Hemoglobin 8.3. (8) Type 2 diabetes mellitus: Code(s): E11.9 - Type 2 diabetes mellitus without complications Status: Chronic Assessment and Plan: On Accu-Cheks and sliding-scale insulin Subjective Date/time seen: 12/20/21 13:21 Interval history: Patient is comfortable. She is lying flat in bed. She still has been spiking fevers. No shortness of breath. generalized discomfort in upper back and chest. Exam Narrative: WDWN in NAD skin no rash or subQ nodules head ncat lungs clear cor reg no rub abd BS+ nontender and soft ext 1+ bilateral edema. Objective Data Vital Signs Vital Signs: Vital Signs - 24 hr 12/19/21 14:00 12/19/21 16:00 12/19/21 18:00 Temperature 39.5 C H Pulse Rate 112 H 120 H 115 H Respiratory Rate 24 H Blood Pressure 121/45 L Pulse Oximetry 95 12/19/21 20:00 12/19/21 21:14 12/19/21 22:00 Temperature 37.3 C Pulse Rate 120 H 119 H 99 Respiratory Rate 20 20 Blood Pressure 106/41 L Pulse Oximetry 94 94 12/19/21 23:54 12/19/21 23:56 12/20/21 00:00 Temperature 36.4 C Pulse Rate 104 H 110 H 94 Respiratory Rate 20 Blood Pressure 124/43 L Pulse Oximetry 97 97 12/20/21 02:00 12/20/21 03:17 12/20/21 04:00 Temperature 37.3 C Pulse Rate 101 H 105 H 107 H Respiratory Rate 18 18 Blood Pressure 112/43 L Pulse Oximetry 96 97 12/20/21 06:00 12/20/21 08:00 12/20/21 08:32 Temperature 36.8 C Pulse Rate 102 H 97 Respiratory Rate 20 Blood Pressure 135/47 L Pulse Oximetry 97 97 12/20/21 12:49 Temperature 37.2 C Pulse Rat
--- NOTE | 2021-12-20 15:56 | PM.PNGS ---
Progress Note: A&P Assessment and Plan (1) Aortic valve endocarditis: Code(s): I35.8 - Other nonrheumatic aortic valve disorders Status: Acute (2) Complication of vascular access for dialysis: Qualifiers: Encounter type: initial encounter Qualified Code(s): T82.9XXA - Unspecified complication of cardiac and vascular prosthetic device, implant and graft, initial encounter Code(s): T82.9XXA - Unspecified complication of cardiac and vascular prosthetic device, implant and graft, initial encounter Status: Acute Assessment and Plan: Patient did not start dialysis until after 3:00 p.m.. We will need to cancel her surgery today and proceed tomorrow at 12:30 p.m.. Subjective Subjective Date/Time Seen: 12/20/21 15:56 Objective Data Vital Signs Vital Signs: Vital Signs - 24 hr 12/19/21 16:00 12/19/21 18:00 12/19/21 20:00 Temperature 39.5 C H 37.3 C Pulse Rate 120 H 115 H 120 H Respiratory Rate 24 H 20 Blood Pressure 121/45 L 106/41 L Pulse Oximetry 95 94 12/19/21 21:14 12/19/21 22:00 12/19/21 23:54 Temperature 36.4 C Pulse Rate 119 H 99 104 H Respiratory Rate 20 20 Blood Pressure 124/43 L Pulse Oximetry 94 97 12/19/21 23:56 12/20/21 00:00 12/20/21 02:00 Temperature Pulse Rate 110 H 94 101 H Respiratory Rate Blood Pressure Pulse Oximetry 97 12/20/21 03:17 12/20/21 04:00 12/20/21 06:00 Temperature 37.3 C Pulse Rate 105 H 107 H 102 H Respiratory Rate 18 18 Blood Pressure 112/43 L Pulse Oximetry 96 97 12/20/21 08:00 12/20/21 08:32 12/20/21 10:00 Temperature 36.8 C Pulse Rate 98 97 101 H Respiratory Rate 20 Blood Pressure 135/47 L Pulse Oximetry 97 97 12/20/21 12:00 12/20/21 12:49 12/20/21 14:00 Temperature 37.2 C Pulse Rate 102 H 104 H 96 Respiratory Rate 22 H Blood Pressure 120/54 L Pulse Oximetry 97 95 Intake/Output Intake/Output: Intake & Output 0112/18/21 12/19/21 12/20/21 23:59 23:59 23:59 23:59 Intake Total 1750 1480 1600 270 Output Total 2075 1 0 Balance -325 1479 1600 270 Meds/Results Medications: Active Medications Generic Name Dose Route Start Last Admin Trade Name Freq PRN Reason Stop Dose Admin Acetaminophen 650 mg 12/20/21 11:43 Acetaminophen Elixir 325 Mg/10.15 Ml Udc PO Q4H PRN Mild Pain (1-5) Or Fever Hydrocodone Bitart/Acetaminophen 1 tab 12/20/21 11:42 12/20/21 12:47 Hydrocodone/Acetaminophen (*Crx) 5-325 Mg Tablet PO 1 tab Q6H PRN Administration Pain Rated 6-10 Ascorbic Acid 250 mg 12/16/21 17:00 12/20/21 11:39 Ascorbic Acid 250 Mg Tablet PO 250 mg BID DILAN Administration Collagenase 1 applic 12/16/21 09:00 12/20/21 11:41 Collagenase Oint 30 Gm Tube TOPICAL 1 applic QAM [facility] Administration Dextrose 12.5 gm 12/16/21 04:13 Dextrose 50% 25 Gm/50 Ml Syringe IV PUSH PRN PRN Hypoglycemia Protocol Epoetin Vahe-epbx 10,000 units 12/20/21 10:04 Epoetin Vahe-Epbx 10,000 Units/Ml Vial IV PUSH MOWEFR [facility] Ergocalciferol 50,000 unit 12/17/21 09:00 12/17/21 08:26 Ergocalciferol 50,000 Unit Capsule PO Not Given WEEKLY [facility] Fentanyl 25 mcg 12/16/21 09:00 12/19/21 13:05 Fentanyl (*Crx) 25 Mcg Patch TRANSDERM 25 mcg Q72H DILAN Administration Glucagon 1 mg 12/16/21 04:13 Glucagon For Inj 1 Mg Vial IM PRN PRN Hypoglycemia Protocol Glucose 15 gm 12/16/21 04:13 Glucose Oral Gel 15 Gm Of Glucse In 37.5 Gm Tube PO PRN PRN Hypoglycemia Protocol Heparin Sodium (Porcine) 5,000 units 12/16/21 22:00 12/20/21 12:50 Heparin Sodium 5,000 Units/Ml Vial SUB-Q 5,000 units Q8HR DILAN Administration Hydroxyzine HCl 10 mg 12/16/21 03:05 12/20/21 04:28 Hydroxyzine Hcl 10 Mg Tablet PO 10 mg QID PRN Administration Itching Daptomycin 500 mg/ Sodium 50 mls @ 100 mls/hr 12/16/21 06:00 12/20/21 05:05 Chloride IVPB Infus
[2021-12-20 17:10] LABS: Glucose Point of Care 79 mg/dl (65-105)
[2021-12-20 20:40] LABS: Glucose Point of Care 114 mg/dl (65-105)
[2021-12-21] VITALS (22 sets, daily range): BP systolic 94–150; BP diastolic 20–109; PULSE 91–120; RESP 18–33; TEMP 36.4–39.1; O2SAT 80–99
[2021-12-21] MEDS: METOCLOPRAMIDE HCL 10 MG/10 ML SOLN UDC 5 MG PO ×4 (00:19→23:26)
[2021-12-21] MEDS: LEVOTHYROXINE SODIUM 25 MCG TABLET PO (04:31)
[2021-12-21] MEDS: HYDROcodone/acetaminophen (*CRX) 5-325 MG TABLET 1 TAB PO ×2 (04:31→20:17)
[2021-12-21] MEDS: HEPARIN SODIUM 5,000 UNITS/ML VIAL 5000 UNITS SUB-Q ×2 (04:32→20:16)
[2021-12-21 05:00] LABS: Hematocrit 26.9 % (37.0-47.0); Hemoglobin 8.2 g/dL (12.0-15.0); Mean Corpuscular HGB Conc 30.5 g/dl (32-36); Mean Corpuscular Hemoglobin 31.5 pg (26-34); Mean Corpuscular Volume 103.5 fl (80-100); Mean Platelet Volume 10.7 fl (7.4-10.4); Platelet Count Result 249 k/mm3 (150-375); Red Cell Distribution Width 16.3 % (11.5-14.5); White Blood Count 25.9 K/mm3 (4.5-10.0)
[2021-12-21 05:27] LABS: Alanine Aminotransferase 14 U/L (4-35); Albumin Level 2.8 g/dL (3.5-5.1); Alkaline Phosphatase 100 U/L (38-126); Anion Gap 9 mmol/L (8-16); Aspartate Amino Transferase 22 U/L (14-36); Bilirubin,Total 0.5 mg/dL (0.2-1.3); Blood Urea Nitrogen 23 mg/dL (7-17); Carbon Dioxide 27 mmol/L (22-30); Chloride 100 mmol/L (98-107); Estimated CRCL calculation 25 ml/min; Estimated Glomerular Filt Rate 13; Glucose 86 mg/dL (65-110); Phosphorus 2.4 mg/dL (2.5-4.5); Potassium 4.3 mmol/L (3.4-5.0); Sodium 136 mmol/L (137-145)
[2021-12-21 06:57] LABS: Anisocytosis 1+ (NORMAL); Band Neutrophils Percent 6 % (0-6); Lymphocytes Absolute Manual 2.84 K/mm3 (1.1-4.5); Monocytes Absolute Manual 1.55 K/mm3 (0.1-0.90); Monocytes Percent Manual 6 % (3-9); Neutrophils Absolute Manual 21.49 K/mm3 (1.7-7.2); Neutrophils Percent Manual 77 % (46-73); Platelet Estimate Adequate (Adequate); Total Cells Counted 100
--- NOTE | 2021-12-21 07:04 | P.PNNP_ITS ---
Progress Note: A&P Assessment and Plan (1) End stage renal disease: Code(s): N18.6 - End stage renal disease Status: Chronic Assessment and Plan: * initiated on FLEET ADMINISTRATIVE ASSISTANT/dialysis in January 2021 * thought to be secondary to diabetes * normal schedule is M// at [facility] * Hemodialysis done yesterday. * It ended too late to remove the catheter yesterday so this is planned for this morning. * Will hold off on dialysis for a few days and watch the numbers. Then will place a temporary catheter. Being on whether she is having fevers and culture status this may be an in and out catheter or just stay in for a few days until a PermCath can be placed. Current the last fever in the chart was on 12/19. I will verify what the dialysis nurse told be about yesterday's temperature. Last blood culture was positive on 12/17. Will repeat blood cultures tomorrow after the catheter is removed. * Potassium is good today. * Volume status is good (2) Hyperkalemia: Code(s): E87.5 - Hyperkalemia Status: Acute Assessment and Plan: * Resolved (3) Sepsis: Qualifiers: Sepsis acute organ dysfunction status: without acute organ dysfunction Sepsis type: sepsis due to unspecified organism Qualified Code(s): A41.9 - Sepsis, unspecified organism Code(s): A41.9 - Sepsis, unspecified organism Status: Acute Assessment and Plan: * She had fever, leukocytosis, hypotension, and tachycardia. * Heart rate is 91. * .White count still high in the mid 20s. * All lines coming out. * Staph aureus in the blood. * on daptomycin and ceftaroline * Her echo shows an aortic valve vegetation. Trying to transfer to tertiary care center. * Remove PermCath as above (4) Pneumonia: Qualifiers: Laterality: bilateral Lung location: unspecified part of lung Pneumonia type: due to unspecified organism Qualified Code(s): J18.9 - Pneumonia, unspecified organism Code(s): J18.9 - Pneumonia, unspecified organism Status: Acute Assessment and Plan: * Due to septic pulmonary emboli (5) Calciphylaxis: Code(s): E83.59 - Other disorders of calcium metabolism Status: Acute Assessment and Plan: * mainly localized to abdomen/abdominal pannus * was getting sodium thiosulfate * developed severe anion gap metabolic acidosis from use * this apparently resolved * local wound care (6) Hypotension: Code(s): I95.9 - Hypotension, unspecified Status: Chronic Assessment and Plan: * chronic issue at baseline * Blood pressure did pretty well yesterday. (7) Anemia: Code(s): D64.9 - Anemia, unspecified Status: Chronic Assessment and Plan: * related to ESRD and acute illness * Epogen with HD * Hemoglobin 8.3. (8) Type 2 diabetes mellitus: Code(s): E11.9 - Type 2 diabetes mellitus without complications Status: Chronic Assessment and Plan: * On Accu-Cheks and sliding-scale insulin Subjective Date/time seen: 12/21/21 07:04 Interval history: Patient is comfortable. She is lying flat in bed. She had a temperature of 102.5? yesterday before dialysis according to the dialysis nurse. In the chart the last temperature was on the 30th.. No shortness of breath. More comfortable today. Exam Narrative: WDWN in NAD skin no rash or subQ nodules head ncat lungs clear cor reg no rub abd BS+ nontender and soft ext 1+ bilate
--- NOTE | 2021-12-21 07:04 | PM.PNNEP ---
Progress Note: A&P Assessment and Plan (1) End stage renal disease: Code(s): N18.6 - End stage renal disease Status: Chronic Assessment and Plan: initiated on CARD DECORATOR/dialysis in January 2021 thought to be secondary to diabetes normal schedule is M/W/F at [facility] Hemodialysis done yesterday. It ended too late to remove the catheter yesterday so this is planned for this morning. Will hold off on dialysis for a few days and watch the numbers. Then will place a temporary catheter. Being on whether she is having fevers and culture status this may be an in and out catheter or just stay in for a few days until a PermCath can be placed. Current the last fever in the chart was on 12/19. I will verify what the dialysis nurse told be about yesterday's temperature. Last blood culture was positive on 12/17. Will repeat blood cultures tomorrow after the catheter is removed. Potassium is good today. Volume status is good (2) Hyperkalemia: Code(s): E87.5 - Hyperkalemia Status: Acute Assessment and Plan: Resolved (3) Sepsis: Qualifiers: Sepsis acute organ dysfunction status: without acute organ dysfunction Sepsis type: sepsis due to unspecified organism Qualified Code(s): A41.9 - Sepsis, unspecified organism Code(s): A41.9 - Sepsis, unspecified organism Status: Acute Assessment and Plan: She had fever, leukocytosis, hypotension, and tachycardia. Heart rate is 91. .White count still high in the mid 20s. All lines coming out. Staph aureus in the blood. on daptomycin and ceftaroline Her echo shows an aortic valve vegetation. Trying to transfer to tertiary care center. Remove PermCath as above (4) Pneumonia: Qualifiers: Laterality: bilateral Lung location: unspecified part of lung Pneumonia type: due to unspecified organism Qualified Code(s): J18.9 - Pneumonia, unspecified organism Code(s): J18.9 - Pneumonia, unspecified organism Status: Acute Assessment and Plan: Due to septic pulmonary emboli (5) Calciphylaxis: Code(s): E83.59 - Other disorders of calcium metabolism Status: Acute Assessment and Plan: mainly localized to abdomen/abdominal pannus was getting sodium thiosulfate developed severe anion gap metabolic acidosis from use this apparently resolved local wound care (6) Hypotension: Code(s): I95.9 - Hypotension, unspecified Status: Chronic Assessment and Plan: chronic issue at baseline Blood pressure did pretty well yesterday. (7) Anemia: Code(s): D64.9 - Anemia, unspecified Status: Chronic Assessment and Plan: related to ESRD and acute illness Epogen with HD Hemoglobin 8.3. (8) Type 2 diabetes mellitus: Code(s): E11.9 - Type 2 diabetes mellitus without complications Status: Chronic Assessment and Plan: On Accu-Cheks and sliding-scale insulin Subjective Date/time seen: 12/21/21 07:04 Interval history: Patient is comfortable. She is lying flat in bed. She had a temperature of 102.5? yesterday before dialysis according to the dialysis nurse. In the chart the last temperature was on the 30th.. No shortness of breath. More comfortable today. Exam Narrative: WDWN in NAD skin no rash or subQ nodules head ncat lungs clear cor reg no rub abd BS+ nontender and soft ext 1+ bilateral edema. Objective Data Vital Signs Vital Signs: Vital Signs - 24 hr 12/20/21 08:00 12/20/21 08:32 12/20/21 10:00 Temperature 36.8 C Pulse Rate 98 97 101 H Respiratory Rate 20 Blood Pressure 135/47 L Pulse Oximetry 97 97 12/20/21 12:00 12/20/21 12:49 12/20/21 14:00 Temperature 37.2 C Pulse Rate 102 H 104 H 96 Respiratory Rate 22 H Blood Pressure 120/54 L Pulse Oximetry 97 95 12/20/21 14:55 12/20/21 15:05 12/20/21 15:15 Temperature 36.9 C Pulse Rate 97 88 8
[2021-12-21 08:36] LABS: Glucose Point of Care 73 mg/dl (65-105)
[2021-12-21] MEDS: SEVELAMER CARBONATE 800 MG TABLET 2400 MG PO ×2 (08:57→16:08)
[2021-12-21] MEDS: COLLAGENASE OINT 30 GM TUBE 1 APPLIC TOPICAL (08:57)
[2021-12-21] MEDS: ASCORBIC ACID 250 MG TABLET PO ×2 (08:58→16:08)
[2021-12-21] MEDS: SIMETHICONE 80 MG TAB.CHEW PO ×3 (08:59→20:16)
[2021-12-21] MEDS: TOLNAFTATE 1% POWDER 45 GM BTL 1 APPLIC TOPICAL ×2 (08:59→20:16)
[2021-12-21] MEDS: MULTIVITAMINS /C LUTEIN (CENTRUM SILVER) TABLET *BKC 1 TAB PO (08:59)
--- NOTE | 2021-12-21 09:37 | PM.IMPN ---
Progress Note: A&P Assessment and Plan (1) Sepsis: Qualifiers: Sepsis acute organ dysfunction status: without acute organ dysfunction Sepsis type: sepsis due to unspecified organism Qualified Code(s): A41.9 - Sepsis, unspecified organism Code(s): A41.9 - Sepsis, unspecified organism Status: Acute Assessment and Plan: Patient sent into the ED from the [place] for fever, cough and hypoxia. COVID swab was negative. HRCT of the chest shows diffuse lung disease likely pneumonia and septic emboli. Splenic subacute or chronic hematoma or infarct noted. CT of the abdomen pelvis does not show any acute findings but does show severe calcifications of majority of the abdominal arteries. She met criteria for sepsis with fever, tachycardia, and leukocytosis. And now has septicemia with positive blood cultures (12/15/21) growing methicillin-resistant Staph Aureus (2of2). Echo for aortic valve vegetation 0.7 cm x 0.8 cm. Leukocytosis was improving but worse now to 26K. She is allergic to Vancomycin so Daptomycin and Zosyn started. Repeat blood culture on 12/17/21 also positive for MRSA (2of2). Most likely catheter associated bloodstream infection with a central line and dialysis permanent catheter in place on admission. Central line removed. Could not remove HD catheter yesterday but plans to remove after HD today. Abx changed to Daptomycin and Ceftaroline. Infectious disease needs to be consulted which we do not have in our facility. Consulted with [facility] and [facility] for transferring the patient for further management. They have accepted but awaiting bed availability. Repeat BCx after HD catheter removed. (2) Aortic valve endocarditis: Code(s): I35.8 - Other nonrheumatic aortic valve disorders Status: Acute Assessment and Plan: Echo showing vegetation on the aortic valve consistent with aortic valve endocarditis. As above. (3) Acute hyperkalemia: Code(s): E87.5 - Hyperkalemia Status: Acute Assessment and Plan: Potassium 6.0 on admission related to her missing HD. This was treated appropriately. She was stabilized until such time as she could received dialysis. Potassium stabilized now that she is having regular HD. Will continue to monitor. Appreciate Nephrology input. (4) Pneumonia: Qualifiers: Laterality: bilateral Lung location: unspecified part of lung Pneumonia type: due to unspecified organism Qualified Code(s): J18.9 - Pneumonia, unspecified organism Code(s): J18.9 - Pneumonia, unspecified organism Status: Acute Assessment and Plan: CT Chest showing diffuse lung disease likely PNA with septic embolic. As above. (5) ESRD on hemodialysis: Code(s): N18.6 - End stage renal disease; Z99.2 - Dependence on renal dialysis Status: Chronic Assessment and Plan: Patient has end-stage renal disease. She has hemodialysis . Because of her illness, she missed dialysis on 12/15/21 causing hyperkalemia on admission. She has undergone hemodialysis since admission with improvement of her potassium level. Her picture enlarger is Dr. Guzman. Continue Renvela. Plan to repeat HD today and then remove dialysis catheter. Appreciate nephrology input (6) Complication of vascular access for dialysis: Qualifiers: Encounter type: initial encounter Qualified Code(s): T82.9XXA - Unspecified complication of cardiac and vascular prosthetic device, implant and graft, initial encounter Code(s): T82.9XXA - Unspecified complication of cardiac and vascular prosthetic device, implant and graft, initial encounter Status: Acute Assessment and Plan: As above. Could not arrange to have HD catheter removed yesterday but plan to remove HD catheter today after HD. Keep catheter out for as long as possible. (7) Anemia: Code(s): D64.9 - Anemia, unspecified Status: Chronic Asses
--- NOTE | 2021-12-21 12:10 | WPDANESEPPF ---
Anes - Initial Pre Proc Eval Procedure: Operation Date: 12/21/21 12:30 Proposed Procedures p Removal Tunnelled Dialysis Catheter - Karel Johns MD Date/Time: 12/21/21 12:10 Surgeon: Case Escamilla MD Pre Op Diagnosis: sepsis, pneumonia, hyperkalemia Patient Data Age: 41 Gender: F Height: 1.75 m Weight: 128 kg Last Vital Signs Temp 38.2 C H 12/21/21 12:03 Pulse 110 H 12/21/21 12:03 Resp 20 12/21/21 12:03 BP 150/109 H 12/21/21 12:03 Pulse Ox 92 12/21/21 12:03 Allergies Allergy/AdvReac Type Severity Reaction Status Date / Time vancomycin Allergy Rash Verified 12/15/21 18:27 Home Medications Medication Instructions Recorded Confirmed Type ascorbic acid (vitamin C) 250 mg PO BID 12/15/21 12/16/21 History ergocalciferol (vitamin D2) 1,250 mcg PO WEEKLY 12/15/21 12/15/21 History fentanyl 1 patch TRANSDERMAL Q72H 12/15/21 12/16/21 History heparin (porcine) 7,500 unit Q8H 12/15/21 12/16/21 History hydrocodone-acetaminophen [[place]] 1 tablet PO HS 12/15/21 12/15/21 History hydroxyzine HCl 10 mg PO QID PRN 12/15/21 12/15/21 History insulin lispro [Humalog KwikPen See Rx Instructions .ROUTE .COMPLEX 12/15/21 12/16/21 History Insulin] levothyroxine 25 mcg PO DAILY 12/15/21 12/15/21 History loperamide 2 mg PO PRN PRN 12/15/21 12/15/21 History metoclopramide HCl 5 mg PO TIDHS 12/15/21 12/16/21 History sevelamer carbonate 2.4 g PO TID 12/15/21 12/15/21 History sqaxihbciujh-qqu-dzki-FA-vit K 1 tablet PO DAILY 12/16/21 12/16/21 History [Multi-Day Plus Minerals] Laboratory Tests 12/20/21 12/20/21 12/20/21 11:47 17:07 19:53 WBC RBC Hgb Hct MCV MCH MCHC RDW Plt Count MPV Immature Gran % (Auto) Neut % (Auto) Lymph % (Auto) Colbert % (Auto) Eos % (Auto) Baso % (Auto) Lymph # (Auto) Colbert # (Auto) Eos # (Auto) Baso # (Auto) Abs Immat Gran (auto) Absolute Neuts (auto) Absolute Nucleated RBC Total Counted Neutrophils % (Manual) Band Neutrophils % Lymphocytes % (Manual) Monocytes % (Manual) Nucleated RBC % Abs Neuts (Manual) Abs Lymphs (Manual) Abs Monocytes (Manual) Platelet Estimate Anisocytosis Sodium Potassium Chloride Carbon Dioxide Anion Gap BUN Creatinine Estim Creat Clear Calc Estimated GFR Glucose POC Capillary Glucose 85 mg/dl mg/dl 79 mg/dl mg/dl 114 mg/dl H mg/dl (65-105) (65-105) (65-105) Calcium Phosphorus Magnesium Total Bilirubin AST ALT Alkaline Phosphatase Total Protein Albumin 12/21/21 12/21/21 12/21/21 04:30 04:30 07:57 WBC 25.9 K/mm3 H K/mm3 (4.5-10.0) RBC 2.60 M/mm3 L M/mm3 (4.2-5.4) Hgb 8.2 g/dL L g/dL (12.0-15.0) Hct 26.9 % L % (37.0-47.0) MCV 103.5 fl H fl (80-100) MCH 31.5 pg pg (26-34) MCHC 30.5 g/dl L g/dl (32-36) RDW 16.3 % H % (11.5-14.5) Plt Count 249 k/mm3 k/mm3 (150-375) MPV 10.7 fl H fl (7.4-10.4) Immature Gran % (Auto) Not Reportable Neut % (Auto) Not Reportable Lymph % (Auto) Not Reportable Colbert % (Auto) Not Reportable Eos % (Auto) Not Reportable Baso % (Auto) Not Reportable Lymph # (Auto) Not Reportable Colbert # (Auto) Not Reportable Eos # (Auto) Not Reportable Baso # (Au
--- NOTE | 2021-12-21 12:26 | WPDHPUPDATE1 ---
History and Physical Update Update Date/Time: 12/21/21 12:26 History and Physical has been reviewed, including an updated exam of the patient. There are changes in the patient's condition. We now know that she has possible infected vegetations on a heart valve, so planis to remove a possibly infected tunnelled dialysis catheter. Risks, benefits, and alternatives of removal of a tunneled Dialysis catheter have been discussed and questions answered. Patient agrees to proceed with procedure.
[2021-12-21] MEDS: SODIUM CHLORIDE 0.9% IV 500 ML 30 ML IV CONT (12:40)
--- NOTE | 2021-12-21 13:20 | PM.OP ---
Procedure Note - Brief Procedure Note - Brief Date of procedure: 12/21/21 Pre-op diagnosis: sepsis, pneumonia, hyperkalemia Suspected cardiac valve vegetations Suspected infected tunneled dialysis catheter Post-op diagnosis: same Surgeon: Karel Johns MD Estimated blood loss (mL): 1 Drains: No Packing: No Pathology: none sent Complications: No immediate complications Condition: stable Disposition: PACU Findings: There was some ingrowth on the cuff of the dialysis catheter but it was only approximately 2-3 cm above the opening of the skin at the exit site. No gross obvious infection in the tunnel as far up as I needed to dissect to remove the catheter.
[2021-12-21 13:32] LABS: Glucose Point of Care 75 mg/dl (65-105)
--- NOTE | 2021-12-21 13:35 | SUR.PHASEI ---
1313; PT ARRIVED INTO PACU ON ROOM AIR. FACE DUSKY. SAO2 60% ON ROOM AIR UPON ARRIVAL. PT AWAKE, TALKING. O2 4L NC APPLIED. SAO2 INCREASED TO 93%.
--- NOTE | 2021-12-21 13:50 | SUR.PHASEI ---
PT AWAKE, ABLE TO REST QUIETLY. TALKATIVE IN INTERVALS. ASKING TO GO BACK TO ROOM. NECK PILLOW AND CELL PHONE WITH PT AT FOOT OF BED
--- NOTE | 2021-12-21 15:10 | W.PM.PROC2 ---
Procedure Note - Detailed Date of Procedure 12/21/21 Pre-op Diagnosis 1. possibly infected tunneled dialysis catheter 2. End-stage renal disease 3. Possible vegetations on heart valves Post-op Diagnosis same Procedure Performed removal of infected tunneled dialysis catheter Surgeon Karel Johns MD Elementary Art Teacher none Anesthesia local ( 1% xylocaine with epi) Indications see nephrology note from this date Patient suspected to have infection of the dialysis catheter leading to possible infection of heart bowels. Therefore, Nephrology and her hospitalists have asked us to remove this tunneled dialysis catheter. Description of Procedure The patient was brought to the operating room and moved from her bed to the operating table. After induction of mild monitored anesthesia care with some IV sedation the entire right upper neck chest lateral shoulder were prepped around the site of the exit of the tunnel dialysis catheter. There was a dressing completely cover with Tegaderm somewhat above and lateral to the exit site of the current tunneled dialysis catheter. this was left in place. The sutures holding the external portion of the tunneled dialysis catheter were already pulled through the skin. After time-out we carefully injected some local anesthetic around the exit site. I carefully pulled on this little bit and palpated the subcu tissues above the exit site. It seems as if the cuff on the catheter was just a few cm above the exit site. I made a vertical incision along the length of the catheter about 1 cm and then carefully dissected with a mosquito hemostat. This pretty mass freed up the catheter to the cuff I then grasped the cuff with a regular size hemostat put some more local anesthetic around it and then pulled hard and it pulled free. Following this I placed 1 finger over the small wound on the right jugular area of the right neck under which I could feel the catheter. I then pulled the catheter out and once moves stroking applied pressure with my a left index finger over the exit site in the vein of the neck for approximately 1 minute and 15 seconds. While we were waiting I carefully establish hemostasis at the exit site small gustavo of skin was removed that was like a flap. This left about a 1 cm rounded opening and I did not try to close this. Since there may be infection we symptom left it open and covered with a 2 x 2 and a small Tegaderm completely sealing it over. Will put in orders for daily dressing foreign exchange student coordinator this using mupirocin. Implants none Estimated Blood Loss 1 Urine Output 0 Drains No Packing No Pathology none sent Complications No immediate complications Condition stable Disposition PACU
[2021-12-21] MEDS: ACETAMINOPHEN ELIXIR 325 MG/10.15 ML UDC 650 MG PO (16:07)
[2021-12-21 16:25] LABS: Glucose Point of Care 67 mg/dl (65-105)
[2021-12-21 20:11] LABS: Glucose Point of Care 89 mg/dl (65-105)
[2021-12-22] VITALS (16 sets, daily range): BP systolic 121–132; BP diastolic 33–86; PULSE 79–118; RESP 15–28; TEMP 36.1–36.7; O2SAT 94–100
--- NOTE | 2021-12-22 02:11 | ECG_ITS ---
Measurements Intervals [place] Rate: 122 P: 8 IL: 137 QRS: 4 QRSD: 93 T: 63 QT: 307 QTc: 439 Interpretive Statements SINUS TACHYCARDIA DELAYED PRECORDIAL R/S TRANSITION BORDERLINE ST-T WAVE ABNORMALITY- INF/HIGH LAT LEADS BASELINE WANDER- I, II, III, AVL, AVF ABNORMAL ECG Electronically Signed On 12-22-2021 8:30:24 SUPERVISOR REFINING by Tyree Little D.O.
[2021-12-22] MEDS: MORPHINE SULFATE (*CRX) 2 MG/ML INJ 1 MG IV PUSH (02:45)
[2021-12-22 04:29] LABS: Hematocrit 28.8 % (37.0-47.0); Hemoglobin 8.6 g/dL (12.0-15.0); Mean Corpuscular HGB Conc 29.9 g/dl (32-36); Mean Corpuscular Hemoglobin 32.1 pg (26-34); Mean Corpuscular Volume 107.5 fl (80-100); Platelet Count Result 331 k/mm3 (150-375); Red Blood Count 2.68 M/mm3 (4.2-5.4); Red Cell Distribution Width 16.8 % (11.5-14.5); White Blood Count 38.3 K/mm3 (4.5-10.0)
[2021-12-22 04:39] LABS: Albumin Level 2.8 g/dL (3.5-5.1); Anion Gap 7 mmol/L (8-16); Blood Urea Nitrogen 22 mg/dL (7-17); Calcium 7.9 mg/dL (8.4-10.2); Carbon Dioxide 31 mmol/L (22-30); Chloride 96 mmol/L (98-107); Estimated CRCL calculation 23 ml/min; Estimated Glomerular Filt Rate 11; Glucose 84 mg/dL (65-110); Potassium 4.3 mmol/L (3.4-5.0); Sodium 134 mmol/L (137-145)
[2021-12-22] MEDS: HEPARIN SODIUM 5,000 UNITS/ML VIAL 5000 UNITS SUB-Q ×3 (05:01→20:24)
[2021-12-22] MEDS: METOCLOPRAMIDE HCL 10 MG/10 ML SOLN UDC 5 MG PO ×4 (05:02→23:10)
[2021-12-22] MEDS: DAPTOmycin 500 MG in SODIUM CHLORIDE 0.9% IV 50 ML 100 MG IVPB (05:02)
[2021-12-22] MEDS: LEVOTHYROXINE SODIUM 25 MCG TABLET PO (05:02)
[2021-12-22] MEDS: NITROGLYCERIN SL 0.4 MG TABLET SUBLINGUAL (08:24)
[2021-12-22 09:01] LABS: Troponin I 0.019 ng/mL (0.000-0.034)
[2021-12-22 09:10] LABS: Glucose Point of Care 82 mg/dl (65-105)
[2021-12-22] MEDS: MULTIVITAMINS /C LUTEIN (CENTRUM SILVER) TABLET *BKC 1 TAB PO (09:37)
[2021-12-22] MEDS: fentaNYL (*CRX) 25 MCG PATCH TRANSDERM (09:37)
[2021-12-22] MEDS: SIMETHICONE 80 MG TAB.CHEW PO ×4 (09:38→20:25)
[2021-12-22] MEDS: SEVELAMER CARBONATE 800 MG TABLET 2400 MG PO ×3 (09:38→17:26)
[2021-12-22] MEDS: hydrOXYzine HCL 10 MG TABLET PO (09:38)
[2021-12-22] MEDS: ASCORBIC ACID 250 MG TABLET PO ×2 (09:38→17:27)
[2021-12-22] MEDS: COLLAGENASE OINT 30 GM TUBE 1 APPLIC TOPICAL (09:40)
[2021-12-22] MEDS: TOLNAFTATE 1% POWDER 45 GM BTL 1 APPLIC TOPICAL ×2 (09:40→20:24)
[2021-12-22] MEDS: HYDROcodone/acetaminophen (*CRX) 5-325 MG TABLET 1 TAB PO ×2 (09:49→17:22)
--- NOTE | 2021-12-22 11:29 | PM.IMPN ---
Progress Note: A&P Assessment and Plan (1) Chest pain: Code(s): R07.9 - Chest pain, unspecified Status: Acute Assessment and Plan: Patietn with chest pain last night and again today. EKG performed last night and repeated today. Reviewed personally and does not appear much changed. CXR performed and personally reviewed showing worsened diffuse lung disease. [place] pain related to worsening PNA. Will trend Troponins for now but felt unlikely ischemic disease. ASA once. (2) Sepsis: Qualifiers: Sepsis acute organ dysfunction status: without acute organ dysfunction Sepsis type: sepsis due to unspecified organism Qualified Code(s): A41.9 - Sepsis, unspecified organism Code(s): A41.9 - Sepsis, unspecified organism Status: Acute Assessment and Plan: Patient sent into the ED from the [place] for fever, cough and hypoxia. COVID swab was negative. HRCT of the chest shows diffuse lung disease likely pneumonia and septic emboli. Splenic subacute or chronic hematoma or infarct noted. CT of the abdomen pelvis does not show any acute findings but does show severe calcifications of majority of the abdominal arteries. She met criteria for sepsis and septicemia with positive blood cultures (12/15/21) growing methicillin-resistant Staph Aureus (2of2). Echo showing aortic valve vegetation 0.7 cm x 0.8 cm. Leukocytosis was improving but worse now to 38K. She is allergic to Vancomycin so Daptomycin and Zosyn started. Repeat blood culture on 12/17/21 also positive for MRSA (2of2). Most likely catheter associated bloodstream infection with a central line and dialysis permanent catheter in place on admission. Central line removed 12/19. HD catheter removed 12/21 after HD. Abx changed to Daptomycin and Ceftaroline. Infectious disease needs to be consulted which we do not have in our facility. Consulted with [facility] and [facility] for transferring the patient for further management. They have accepted but awaiting bed availability. Fever and with elevated WBC felt related to transient bacteremia associated with line removal. Can not exclude abscess formations in the lung given the CXR findings and/or perivalvular abscess. Repeat BCx today. Continue IV abx. Call to tertiary care center again today. (3) Aortic valve endocarditis: Code(s): I35.8 - Other nonrheumatic aortic valve disorders Status: Acute Assessment and Plan: Echo showing vegetation on the aortic valve consistent with aortic valve endocarditis. As above. (4) Acute hyperkalemia: Code(s): E87.5 - Hyperkalemia Status: Acute Assessment and Plan: Potassium 6.0 on admission related to her missing HD. This was treated appropriately. She was stabilized until such time as she could received dialysis. Potassium normal consistently related to HD. Her last HD treatment was yesterday. Continue Renal diet. Will continue to monitor. Appreciate Nephrology input. (5) Pneumonia: Qualifiers: Laterality: bilateral Lung location: unspecified part of lung Pneumonia type: due to unspecified organism Qualified Code(s): J18.9 - Pneumonia, unspecified organism Code(s): J18.9 - Pneumonia, unspecified organism Status: Acute Assessment and Plan: CT Chest showing diffuse lung disease likely PNA with septic embolic. As above. (6) ESRD on hemodialysis: Code(s): N18.6 - End stage renal disease; Z99.2 - Dependence on renal dialysis Status: Chronic Assessment and Plan: Patient has end-stage renal disease. She has hemodialysis -. Because of her illness, she missed dialysis on 12/15/21 causing hyperkalemia on admission. She has undergone hemodialysis since admission with improvement of her potassium level. Her door and arrival attendant is Dr. Guzman. Continue Renvela. HD past 2 days and then HD catheter removed on 12/21/21. Appreciate nephrology and GenSurg input (7) Complication of v
[2021-12-22 12:38] LABS: Troponin I 0.017 ng/mL (0.000-0.034)
[2021-12-22 12:43] LABS: Glucose Point of Care 89 mg/dl (65-105)
[2021-12-22] MEDS: ASPIRIN 81 MG CHEWABLE TABLET 324 MG PO (13:06)
[2021-12-22] MEDS: CENTRAL LINE FLUSH 10 ML IV PUSH (13:07)
[2021-12-22 15:41] LABS: Troponin I 0.017 ng/mL (0.000-0.034)
[2021-12-22] MEDS: guaiFENesin 12 HR 600 MG TABCR PO (20:25)
[2021-12-22 20:52] LABS: Glucose Point of Care 91 mg/dl (65-105)
[2021-12-22] MEDS: FUROSEMIDE INJ 40 MG/4 ML VIAL IV PUSH (23:10)
[2021-12-22] MEDS: MORPHINE SULFATE (*CRX) 2 MG/ML INJ IV PUSH (23:11)
[2021-12-22] MEDS: BELLADONNA ALK/PHENOB ELIX 10 ML, MAG HYDROX/ALUMINUM HYD/SIMETH 30 ML, LIDOCAINE HCL 2... PO (23:42)
[2021-12-22] MEDS: PANTOPRAZOLE SODIUM IV 40 MG VIAL IV PUSH (23:43)
[2021-12-23] VITALS: PULSE 96; RESP 19; O2SAT 97
[2021-12-23 02:00] VITALS: PULSE 96
[2021-12-23 04:00] VITALS: BP 127/59; PULSE 102; PULSE 103; PULSE 96; RESP 19; RESP 24; TEMP 36.4; O2SAT 97
[2021-12-23] MEDS: METOCLOPRAMIDE HCL 10 MG/10 ML SOLN UDC 5 MG PO (05:11)
[2021-12-23] MEDS: HEPARIN SODIUM 5,000 UNITS/ML VIAL 5000 UNITS SUB-Q (05:11)
[2021-12-23] MEDS: LEVOTHYROXINE SODIUM 25 MCG TABLET PO (05:12)
[2021-12-23] MEDS: HYDROcodone/acetaminophen (*CRX) 5-325 MG TABLET 1 TAB PO (05:12)
[2021-12-23 06:00] VITALS: PULSE 90
--- NOTE | 2021-12-23 06:44 | PC.NURSE ---
05:30 This RN talked to Mimi from [facility] transfer center. Patient has a bed at [facility] in [place]. Will call report. 05:40 [address]imi [address] from [facility] transfer [place], and patient will need a different room due to MRSA flag in chart. 06:[address] [facility] transfer center called, and provided bed number as well as phone number for report. Will pass on to day nurse.
[2021-12-23 08:14] LABS: Glucose Point of Care 86 mg/dl (65-105)
[2021-12-23 08:18] VITALS: BP 117/59; PULSE 94; RESP 20; TEMP 37; O2SAT 97
--- NOTE | 2021-12-23 09:17 | PM.TDS ---
Transfer Discharge Sum: Prov Provider Date of admission: 12/15/21 23:05 Primary care physician: Marya Juarez, Admitting clinician: Case Escamilla MD Consults: 12/15/21 23:07 Consult to Physician Routine Comment: Consulting Provider: Colin Grullon Reason for consultation: esrd ,hyperkalemia Has provider been notified: Yes 12/15/21 23:08 Consult to Physician Routine Comment: Consulting Provider: Cally Dewitt Reason for consultation: sepsis, hypoension Has provider been notified: Yes 12/16/21 Wound/ET Consult Routine Reason for Consult:: bilateral wound abdominal wall 12/19/21 Consult to Physician Routine Comment: Consulting Provider: Laurent Monk Reason for consultation: pls remove tunneled dialysis catheter after dialysis tomorrow. Has provider been notified: Yes DS: Admitting Diagnosis Discharge Date 12/23/21 Admitting Diagnosis Fever, shortness of breath, and cough DS: Discharge Diagnosis Discharge Diagnosis (1) Chest pain: Code(s): R07.9 - Chest pain, unspecified Status: Acute Assessment and Plan: Patient with chest pain while hospitalized. EKG showing borderline ST-T wave changes in the high lateral leads without much change overall. Troponni negative x3. Chest pain was pleuritic in nature. CXR repeated showing worsened diffuse lung disease. [place] pain related to worsening PNA vs fluid overload. (2) Sepsis: Qualifiers: Sepsis acute organ dysfunction status: without acute organ dysfunction Sepsis type: sepsis due to unspecified organism Qualified Code(s): A41.9 - Sepsis, unspecified organism Code(s): A41.9 - Sepsis, unspecified organism Status: Acute Assessment and Plan: Patient sent into the ED from the [place] for fever, cough and hypoxia. COVID swab was negative. HRCT of the chest shows diffuse lung disease likely pneumonia and septic emboli. Splenic subacute or chronic hematoma or infarct noted. CT of the abdomen pelvis does not show any acute findings but does show severe calcifications of majority of the abdominal arteries. She met criteria for sepsis and septicemia with positive blood cultures (12/15/21) growing methicillin-resistant Staph Aureus (2of2). Echo showing aortic valve vegetation 0.7 cm x 0.8 cm. Leukocytosis was improving but worse to 38K. She is allergic to Vancomycin so Daptomycin and Zosyn started. Repeat blood culture on 12/17/21 also positive for MRSA (2of2). Abx changed to Daptomycin and Ceftaroline. BCx on 12/22/21 are NGTD. Most likely catheter associated bloodstream infection with a central line and dialysis permanent catheter in place on admission. Central line removed 12/19. HD catheter removed 12/21 after HD. Fever and with elevated WBC felt related to transient bacteremia associated with line removal. Infectious disease needs to be consulted which we do not have in our facility. Consulted with tertiary [facility] for transferring the patient for further management. They have accepted the patient with plans for transfer today. Can not exclude abscess formations in the lung given the CXR findings and/or perivalvular abscess. Not able to obtain labs this morning and now ambulance is arriving for transfer. (3) Aortic valve endocarditis: Code(s): I35.8 - Other nonrheumatic aortic valve disorders Status: Acute Assessment and Plan: Echo showing vegetation on the aortic valve consistent with aortic valve endocarditis. As above. (4) Acute hyperkalemia: Code(s): E87.5 - Hyperkalemia Status: Acute Assessment and Plan: Potassium 6.0 on admission related to her missing HD. This was treated appropriately. She was stabilized until such time as she could received dialysis. Potassium consistently normal related to HD. Her last HD treatment was 12/21. Continue Renal diet. Will continue to monitor. Potassium in Centrum Silver (home med) so this was stopped.
--- NOTE | 2021-12-23 10:37 | PC.NURSE ---
Patient discarged to [facility], Room [address] Bed 1. Report called to TAYLER Fontaine. Patient left floor with [facility], no distress noted at discharge.
== END 2021-12-23 10:31 | disposition short-term general hospital (02) | DRG 721 ==
LOC: ANHED 23:13 → ANHIMU 12-16 08:20
PROVIDERS: Internal Medicine Nephrology; Nurse Practitioner; Surgery; Admitting Provider Internal Medicine; Emergency Provider Family Medicine; PCP Internal Medicine Gastroenterology; Visit Provider Internal Medicine
PROC: 0JPT3XZ Removal of Tunneled Vascular Access Device from Trunk Subcutaneous Tissue and Fascia, Percutaneous Approach (ICD-10-PCS; CPT 36589; principal; 2021-12-21 12:30)
DX: T80.211A Bloodstream infection due to central venous catheter, initial encounter (principal); A41.02 Sepsis due to Methicillin resistant Staphylococcus aureus; I26.90 Septic pulmonary embolism without acute cor pulmonale; Z20.822 Contact with and (suspected) exposure to COVID-19; I35.8 Other nonrheumatic aortic valve disorders; E87.5 Hyperkalemia; J18.9 Pneumonia, unspecified organism; E03.9 Hypothyroidism, unspecified; E11.22 Type 2 diabetes mellitus with diabetic chronic kidney disease; I95.9 Hypotension, unspecified; N18.6 End stage renal disease; Z99.2 Dependence on renal dialysis; E66.01 Morbid (severe) obesity due to excess calories; Z68.41 Body mass index [BMI] 40.0-44.9, adult; E11.43 Type 2 diabetes mellitus with diabetic autonomic (poly)neuropathy; K31.84 Gastroparesis; D69.6 Thrombocytopenia, unspecified; E83.59 Other disorders of calcium metabolism; D63.1 Anemia in chronic kidney disease; L98.499 Non-pressure chronic ulcer of skin of other sites with unspecified severity; Z86.14 Personal history of Methicillin resistant Staphylococcus aureus infection; Z88.3 Allergy status to other anti-infective agents; Z89.612 Acquired absence of left leg above knee; Z93.1 Gastrostomy status
CPT/HCPCS: 36415; 51702; 71045; 71250; 74176; 80048; 80053; 80069; 81001; 82607; 82728; 82746; 82948; 83036; 83540; 83550; 83605; 83735; 84100; 84443; 84484; 85025; 85027; 85055; 85610; 85730; 86140; 86704; 86706; 87040; 87077; 87086; 87147; 87181; 87186; 87340; 87493; 93005; 96361; 96365; 96375; 99285; A9270; C8929; C9113; C9803; G0257; J0131; J0610; J0712; J0878; J1644; J1815; J1940; J2270; J2405; J2543; J2704; J3010; J7030; J7040; J7060; P9047; Q5105; Q9957; U0003; U0005